=== PATIENT | female | born 1940 | race Caucasian/White ===

== ENCOUNTER → 2016-07-30 | Outpatient (CLI) | payer OTHER, MEDICARE ==
[~2016-07-30] MED LIST: AMOXICILLIN 8751 TAB PO; CELEBREX 200MG200 MG PO; DDAVP; MAGNESIUM100 MG; METAMUCIL1 PDR PO; NEXIUM 20MG20 MG PO; PERCOCET 325 MG1 TA2 PO; PREDNISONE 5MG5 MG PO; PRILOSEC 20MG20 MG PO; PROVIGIL PO; PROVIGIL200 MG PO; REGLAN 5MG T5 MG/TAB PO; RT SPIRIVA18 MCG IH; SEA OMEGA 301 SGL PO; SINGULAIR 110 MG/TAB PO; SYNTHROID0.1 MG/TAB PO; ULTRAM 50MG TAB50 MG PO; ZETIA 10MG TAB10 MG PO; ZETIA10 MG PO; ZOCOR 10MG10 MG PO
== END ==
LOC: MHCPAIN 09:36
DX: G89.29 Other chronic pain (principal); M53.3 Sacrococcygeal disorders, not elsewhere classified; M47.817 Spondylosis without myelopathy or radiculopathy, lumbosacral region; M54.10 Radiculopathy, site unspecified; M12.88 Other specific arthropathies, not elsewhere classified, other specified site
CPT/HCPCS: G0463

== ENCOUNTER → 2016-08-05 | Outpatient (CLI) | payer MEDICARE, OTHER | LOC: MHCPAIN 08:17 | DX: M12.88 Other specific arthropathies, not elsewhere classified, other specified site (principal); M53.3 Sacrococcygeal disorders, not elsewhere classified | CPT/HCPCS: G0260; J1040; Q9967 ==

== ENCOUNTER → 2016-08-19 | Outpatient (CLI) | payer MEDICARE, OTHER | LOC: MHCPAIN 12:48 | DX: M12.88 Other specific arthropathies, not elsewhere classified, other specified site (principal); M53.3 Sacrococcygeal disorders, not elsewhere classified | CPT/HCPCS: G0260 ==

== ENCOUNTER → 2016-11-15 | Outpatient (CLI) | payer MEDICARE, OTHER | LOC: MHCPAIN 07:30 | DX: G89.29 Other chronic pain (principal); M47.817 Spondylosis without myelopathy or radiculopathy, lumbosacral region; M54.16 Radiculopathy, lumbar region; M53.3 Sacrococcygeal disorders, not elsewhere classified | CPT/HCPCS: G0463 ==

== ENCOUNTER → 2016-11-18 | Outpatient (CLI) | payer MEDICARE, OTHER | LOC: MHCPAIN 11:36 | DX: M47.817 Spondylosis without myelopathy or radiculopathy, lumbosacral region (principal) ==

== ENCOUNTER → 2016-11-26 | Outpatient (CLI) | payer MEDICARE, OTHER | LOC: MHCPAIN 08:21 | DX: G89.29 Other chronic pain (principal); M47.817 Spondylosis without myelopathy or radiculopathy, lumbosacral region | CPT/HCPCS: G0463 ==

== ENCOUNTER → 2016-12-02 | Outpatient (CLI) | payer MEDICARE, OTHER | LOC: MHCPAIN 12:07 | DX: M47.817 Spondylosis without myelopathy or radiculopathy, lumbosacral region (principal) | CPT/HCPCS: J1100; J2250; J3010 ==

== ENCOUNTER → 2017-01-31 | Outpatient (CLI) | payer MEDICARE, OTHER | LOC: MHCPAIN 08:10 | DX: M47.817 Spondylosis without myelopathy or radiculopathy, lumbosacral region (principal); M53.3 Sacrococcygeal disorders, not elsewhere classified | CPT/HCPCS: G0463 ==

== ENCOUNTER → 2017-02-02 | Outpatient (CLI) | payer MEDICARE, OTHER | LOC: MC.RAD 10:32 | DX: Z12.31 Encounter for screening mammogram for malignant neoplasm of breast (principal) ==

== ENCOUNTER → 2017-02-03 | Outpatient (CLI) | payer MEDICARE, OTHER | LOC: MHCPAIN 08:08 | DX: M47.817 Spondylosis without myelopathy or radiculopathy, lumbosacral region (principal) ==

== ENCOUNTER → 2017-02-08 | Outpatient (CLI) | payer MEDICARE, OTHER | LOC: MHCPAIN 08:33 | DX: G89.29 Other chronic pain (principal); M47.817 Spondylosis without myelopathy or radiculopathy, lumbosacral region; M53.3 Sacrococcygeal disorders, not elsewhere classified | CPT/HCPCS: G0463 ==

== ENCOUNTER → 2017-02-10 | Outpatient (CLI) | payer MEDICARE, OTHER | LOC: MHCPAIN 07:47 | DX: M47.817 Spondylosis without myelopathy or radiculopathy, lumbosacral region (principal) | CPT/HCPCS: J1100; J2250; J3010; Q9967 ==

== ENCOUNTER → 2017-03-08 | Outpatient (CLI) | payer MEDICARE, OTHER ==
[~2017-03-08] MED LIST changes: +CORTEF5 MG PO; +KLOR-CON 1010 MEQ PO; +LEVAQUIN 750MG750 M1 PO; +MAGNESIUM250 M1 PO; +MASON NATURAL1200 MG PO; +NEURONTIN300 MG/CAP PO; +Patient's Own Medica PO; +ROXICODONE 55 MG/TAB PO; +ZOFRAN ODT4 MG PO
== END ==
LOC: MHCPAIN 08:20
DX: G89.29 Other chronic pain (principal); M47.817 Spondylosis without myelopathy or radiculopathy, lumbosacral region; M53.3 Sacrococcygeal disorders, not elsewhere classified
CPT/HCPCS: G0463

== ENCOUNTER → 2017-05-11 | Outpatient (CLI) | payer MEDICARE, OTHER ==
[~2017-05-11] MED LIST changes: -CORTEF5 MG PO; -KLOR-CON 1010 MEQ PO; -LEVAQUIN 750MG750 M1 PO; -MAGNESIUM250 M1 PO; -MASON NATURAL1200 MG PO; -NEURONTIN300 MG/CAP PO; -Patient's Own Medica PO; -ROXICODONE 55 MG/TAB PO; -ZOFRAN ODT4 MG PO
== END ==
LOC: MHCPAIN 10:07
DX: G89.29 Other chronic pain (principal); M47.27 Other spondylosis with radiculopathy, lumbosacral region; M53.3 Sacrococcygeal disorders, not elsewhere classified
CPT/HCPCS: G0463

== ENCOUNTER 2017-10-04 05:27 | Emergency (ER) | payer MEDICARE, OTHER ==
[~2017-10-04] VITALS: Ht 154.9 cm; Wt 84.7 kg
[2017-10-04 05:40] VITALS: TEMP 98
[2017-10-04 06:19] LABS: BASO % 0.3 % (0.0-2.0); EOS # 0.2 (0.0-0.7); EOS % 1.3 % (0-4.0); GRAN # 8.6 (1.4-6.5); GRAN % 72.1 % (42.2-75.2); HEMATOCRIT 42.5 % (37.0-47.0); LYMPH % 16.7 % (20.0-51.0); MEAN CELL VOLUME 92 fl (80.0-100.0); MEAN CORPUSCULAR HEMOGLOBIN 30 pg (27.0-31.0); MEAN CORPUSCULAR HGB CONC 33 g/dl (33.0-37.0); MONO # 1.1 (0.1-0.6); MONO % 9.3 % (1.7-9.3); PLATELET COUNT 233 K/mm3 (130-400); RED BLOOD COUNT 4.62 M/mm3 (4.10-5.30); REDCELL DISTRIBUTION WIDTH-CV 13.9 % (11.5-14.5)
[2017-10-04 06:29] LABS: ALBUMIN 3.8 gm/dL (3.5-5.0); BILIRUBIN,TOTAL 0.3 mg/dL (0.0-1.0); C-REACTIVE PROTEIN 0.9 mg/dL (0.0-0.9); CREATININE, serum 0.77 mg/dL (0.52-1.25); POTASSIUM 4.1 mmol/L (3.4-5.0)
[2017-10-04 06:37] LABS: COLLECTION METHOD CLEAN CATCH
[2017-10-04 06:48] LABS: MUCOUS Present /lpf; PH 5 (5-8); SQUAMOUS EPITHELIAL 0-2 /hpf; URINE APPEARANCE Clear; URINE BACTERIA None Seen /hpf; URINE BILIRUBIN Negative (NEGATIVE); URINE BLOOD 2+ (NEGATIVE); URINE COLOR Yellow; URINE GLUCOSE Negative (NEGATIVE); URINE KETONE Negative (NEGATIVE); URINE LEUKOCYTE ESTERASE Negative (NEGATIVE); URINE NITRATE Negative (NEGATIVE); URINE PROTEIN(semi-quant) Negative (NEGATIVE); URINE RBC 0-2 /hpf; URINE UROBILINOGEN Negative (NEGATIVE)
[2017-10-04] MEDS ORDERED: ZOFRAN ODT4 MG PO (08:25)
[2017-10-04 08:33] VITALS: BP 128/78; PULSE 71
== END 2017-10-04 08:34 | disposition home or self-care (01) ==
LOC: COL.ER 05:27
PROVIDERS: Emergency Medicine
DX: R10.32 Left lower quadrant pain (principal); R19.7 Diarrhea, unspecified; E78.5 Hyperlipidemia, unspecified; Z87.19 Personal history of other diseases of the digestive system; Z98.51 Tubal ligation status; Z98.890 Other specified postprocedural states; Z87.891 Personal history of nicotine dependence; Z79.52 Long term (current) use of systemic steroids
CPT/HCPCS: Q9967

== ENCOUNTER 2017-10-05 07:50 | Inpatient (IN) | payer MEDICARE, OTHER ==
[~2017-10-05] VITALS: Ht 154.9 cm; Wt 75.0 kg
[~2017-10-05 07:50] MED LIST changes: +ZOFRAN ODT4 MG PO
[2017-10-05 08:59] LABS: BASO % 0.2 % (0.0-2.0); EOS # 0.2 (0.0-0.7); EOS % 1.4 % (0-4.0); GRAN # 9.4 (1.4-6.5); GRAN % 76.8 % (42.2-75.2); HEMATOCRIT 43.1 % (37.0-47.0); HEMOGLOBIN 14.3 g/dl (12.5-16.0); LYMPH # 1.4 (1.2-3.4); LYMPH % 11.6 % (20.0-51.0); MEAN CELL VOLUME 91 fl (80.0-100.0); MEAN CORPUSCULAR HEMOGLOBIN 30 pg (27.0-31.0); MEAN CORPUSCULAR HGB CONC 33 g/dl (33.0-37.0); MEAN PLATELET VOLUME 8.8 fl (7.4-10.4); MONO # 1.2 (0.1-0.6); MONO % 9.6 % (1.7-9.3); PLATELET COUNT 247 K/mm3 (130-400); RED BLOOD COUNT 4.72 M/mm3 (4.10-5.30)
[2017-10-05 09:06] LABS: ALBUMIN 3.8 gm/dL (3.5-5.0); BILIRUBIN,TOTAL 0.6 mg/dL (0.0-1.0); C-REACTIVE PROTEIN 6.6 mg/dL (0.0-0.9); CREATININE, serum 0.94 mg/dL (0.52-1.25); POTASSIUM 3.9 mmol/L (3.4-5.0); TOTAL PROTEIN 7.3 gm/dL (6.4-8.2)
[2017-10-05 09:16] LABS: COLLECTION METHOD CLEAN CATCH
[2017-10-05 09:26] LABS: MUCOUS Present /lpf; PH 5 (5-8); URINE APPEARANCE Hazy; URINE BACTERIA None Seen /hpf; URINE BILIRUBIN Negative (NEGATIVE); URINE BLOOD 3+ (NEGATIVE); URINE COLOR Yellow; URINE GLUCOSE Negative (NEGATIVE); URINE KETONE Negative (NEGATIVE); URINE LEUKOCYTE ESTERASE 1+ (NEGATIVE); URINE NITRATE Negative (NEGATIVE); URINE PROTEIN(semi-quant) Negative (NEGATIVE); URINE UROBILINOGEN Negative (NEGATIVE)
[2017-10-05 11:24] VITALS: BP 128/61; PULSE 82; TEMP 97.6
[2017-10-05 12:57] VITALS: BP 102/48; PULSE 78; TEMP 99
[2017-10-05 12:59] VITALS: BP 102/48; PULSE 78; TEMP 99
[2017-10-05 16:12] VITALS: BP 102/56; PULSE 75; TEMP 98.8
[2017-10-05 19:33] VITALS: BP 114/65; PULSE 73; TEMP 98
[2017-10-05 23:48] VITALS: BP 107/57; PULSE 69; TEMP 98.6
[2017-10-06] VITALS (7 sets, daily range): BP systolic 106–140; BP diastolic 68–83; PULSE 60–73; TEMP 97.7–98.7
[2017-10-06 06:49] LABS: BASO % 0.2 % (0.0-2.0); EOS # 0.2 (0.0-0.7); EOS % 2.2 % (0-4.0); GRAN # 5.4 (1.4-6.5); GRAN % 65.2 % (42.2-75.2); HEMATOCRIT 37.2 % (37.0-47.0); LYMPH # 1.9 (1.2-3.4); LYMPH % 22.5 % (20.0-51.0); MEAN CELL VOLUME 95 fl (80.0-100.0); MEAN CORPUSCULAR HEMOGLOBIN 30 pg (27.0-31.0); MEAN CORPUSCULAR HGB CONC 32 g/dl (33.0-37.0); MEAN PLATELET VOLUME 8.8 fl (7.4-10.4); MONO # 0.8 (0.1-0.6); MONO % 9.5 % (1.7-9.3); PLATELET COUNT 217 K/mm3 (130-400); RED BLOOD COUNT 3.92 M/mm3 (4.10-5.30)
[2017-10-06 06:50] LABS: HEMOGLOBIN 11.9 g/dl (12.5-16.0)
[2017-10-06 07:09] LABS: CALCIUM 7.7 mg/dL (8.4-10.2); CREATININE, serum 0.74 mg/dL (0.52-1.25); POTASSIUM 3.6 mmol/L (3.4-5.0)
[2017-10-07 00:33] VITALS: BP 118/73; PULSE 67; TEMP 97.9
[2017-10-07 03:42] VITALS: BP 131/86; PULSE 69; TEMP 97.9
[2017-10-07 06:38] LABS: BASO % 0.3 % (0.0-2.0); EOS # 0.2 (0.0-0.7); EOS % 2.7 % (0-4.0); GRAN # 5.1 (1.4-6.5); GRAN % 64.7 % (42.2-75.2); LYMPH # 1.7 (1.2-3.4); LYMPH % 22.2 % (20.0-51.0); MEAN CELL VOLUME 94 fl (80.0-100.0); MEAN CORPUSCULAR HGB CONC 32 g/dl (33.0-37.0); MEAN PLATELET VOLUME 8.8 fl (7.4-10.4); MONO # 0.8 (0.1-0.6); MONO % 9.8 % (1.7-9.3); PLATELET COUNT 217 K/mm3 (130-400); RED BLOOD COUNT 3.79 M/mm3 (4.10-5.30); REDCELL DISTRIBUTION WIDTH-CV 13.8 % (11.5-14.5)
[2017-10-07 06:52] LABS: HEMATOCRIT 35.6 % (37.0-47.0); HEMOGLOBIN 11.4 g/dl (12.5-16.0); MEAN CORPUSCULAR HEMOGLOBIN 30 pg (27.0-31.0)
[2017-10-07 07:03] LABS: CALCIUM 8.1 mg/dL (8.4-10.2); CREATININE, serum 0.75 mg/dL (0.52-1.25); POTASSIUM 3.8 mmol/L (3.4-5.0)
[2017-10-07 08:07] VITALS: BP 129/81; PULSE 60; TEMP 98.8
[2017-10-07] MEDS ORDERED: LEVAQUIN 750MG750 M1 PO (09:07)
== END 2017-10-07 10:40 | disposition home or self-care (01) | DRG 372 ==
LOC: COL.ER 07:50 → MEDICAL 09:25
PROVIDERS: Family Medicine; Internal Medicine Gastroenterology; Physician Assistant
PROC: 0DBN8ZX Excision of Sigmoid Colon, Via Natural or Artificial Opening Endoscopic, Diagnostic (ICD-10-PCS; principal; 2017-10-06 12:00)
DX: A04.8 Other specified bacterial intestinal infections (principal); K92.1 Melena; D12.5 Benign neoplasm of sigmoid colon; K64.1 Second degree hemorrhoids; E89.3 Postprocedural hypopituitarism; B96.89 Other specified bacterial agents as the cause of diseases classified elsewhere
CPT/HCPCS: 99222-AI; 99232-AI; 99239; J0744; J2250; J2405; J3010; J7030; J7120; J7512

== ENCOUNTER → 2018-02-28 | Outpatient (CLI) | payer MEDICARE, OTHER ==
[~2018-02-28] MED LIST changes: +LEVAQUIN 750MG750 M1 PO
== END ==
LOC: ZCOL.LAB 16:11
DX: Z01.812 Encounter for preprocedural laboratory examination (principal); Z22.322 Carrier or suspected carrier of Methicillin resistant Staphylococcus aureus

== ENCOUNTER 2018-04-15 00:54 | Inpatient (IN) | payer MEDICARE, OTHER ==
[~2018-04-15] VITALS: Ht 154.9 cm; Wt 92.5 kg
[~2018-04-15 00:54] MED LIST changes: +CORTEF5 MG PO; +MAGNESIUM250 M1 PO; +MASON NATURAL1200 MG PO; +NEURONTIN300 MG/CAP PO; +ROXICODONE 55 MG/TAB PO
[2018-04-15 02:13] LABS: BASO # 0.1 (0.0-0.2); BASO % 0.4 % (0.0-2.0); EOS # 0.1 (0.0-0.7); EOS % 0.6 % (0-4.0); GRAN # 8.6 (1.4-6.5); GRAN % 63.8 % (42.2-75.2); HEMATOCRIT 34.2 % (37.0-47.0); HEMOGLOBIN 10.8 g/dl (12.5-16.0); LYMPH # 3.2 (1.2-3.4); LYMPH % 23.5 % (20.0-51.0); MEAN CELL VOLUME 94 fl (80.0-100.0); MEAN CORPUSCULAR HEMOGLOBIN 30 pg (27.0-31.0); MEAN CORPUSCULAR HGB CONC 32 g/dl (33.0-37.0); MEAN PLATELET VOLUME 8.8 fl (7.4-10.4); MONO # 1.5 (0.1-0.6); PLATELET COUNT 219 K/mm3 (130-400); RED BLOOD COUNT 3.65 M/mm3 (4.10-5.30); REDCELL DISTRIBUTION WIDTH-CV 13.5 % (11.5-14.5)
[2018-04-15 02:19] LABS: COLLECTION METHOD CLEAN CATCH
[2018-04-15 02:25] LABS: ALBUMIN 3.2 gm/dL (3.5-5.0); BILIRUBIN,TOTAL 0.6 mg/dL (0.0-1.0); CALCIUM 8.2 mg/dL (8.4-10.2); CREATININE, serum 0.84 mg/dL (0.52-1.25); POTASSIUM 3.3 mmol/L (3.4-5.0); TOTAL PROTEIN 6.3 gm/dL (6.4-8.2)
[2018-04-15 02:36] LABS: MUCOUS Present /lpf; PH 5 (5-8); SQUAMOUS EPITHELIAL None Seen /hpf; URINE APPEARANCE Hazy; URINE BACTERIA None Seen /hpf; URINE BILIRUBIN Negative (NEGATIVE); URINE BLOOD 3+ (NEGATIVE); URINE COLOR Yellow; URINE GLUCOSE Negative (NEGATIVE); URINE KETONE Negative (NEGATIVE); URINE LEUKOCYTE ESTERASE Negative (NEGATIVE); URINE NITRATE Negative (NEGATIVE); URINE PROTEIN(semi-quant) Negative (NEGATIVE); URINE RBC >50 /hpf
[2018-04-15 05:50] VITALS: BP 109/63; PULSE 88; TEMP 99
[2018-04-15 09:00] VITALS: BP 101/56; PULSE 80; TEMP 98.8
[2018-04-15 10:37] LABS: BASO % 0.3 % (0.0-2.0); EOS # 0.1 (0.0-0.7); EOS % 0.9 % (0-4.0); GRAN # 7.3 (1.4-6.5); GRAN % 67.3 % (42.2-75.2); LYMPH # 2.3 (1.2-3.4); LYMPH % 21.4 % (20.0-51.0); MEAN CELL VOLUME 93 fl (80.0-100.0); MEAN CORPUSCULAR HGB CONC 33 g/dl (33.0-37.0); MEAN PLATELET VOLUME 8.9 fl (7.4-10.4); PLATELET COUNT 187 K/mm3 (130-400); REDCELL DISTRIBUTION WIDTH-CV 13.4 % (11.5-14.5)
[2018-04-15 10:38] LABS: HEMATOCRIT 29.8 % (37.0-47.0); HEMOGLOBIN 9.7 g/dl (12.5-16.0); MEAN CORPUSCULAR HEMOGLOBIN 30 pg (27.0-31.0)
[2018-04-15 10:51] LABS: CALCIUM 7.4 mg/dL (8.4-10.2); CREATININE, serum 0.7 mg/dL (0.52-1.25); MAGNESIUM 1.8 mg/dL (1.6-2.3); POTASSIUM 3.3 mmol/L (3.4-5.0)
[2018-04-15 11:08] LABS: C-REACTIVE PROTEIN 24.4 mg/dL (0.0-0.9)
[2018-04-15 12:45] VITALS: BP 99/58; PULSE 79; TEMP 98.1
[2018-04-15 16:00] VITALS: BP 126/84; PULSE 81; TEMP 98.1
[2018-04-15 20:28] VITALS: BP 127/75; PULSE 77; TEMP 97.6
[2018-04-16 00:33] VITALS: BP 123/70; PULSE 69; TEMP 98.2
[2018-04-16 04:12] VITALS: BP 111/64; PULSE 71; TEMP 97.4
[2018-04-16 08:45] LABS: BASO % 0.2 % (0.0-2.0); EOS % 0.2 % (0-4.0); GRAN # 10.4 (1.4-6.5); GRAN % 81.9 % (42.2-75.2); LYMPH # 1.5 (1.2-3.4); LYMPH % 11.6 % (20.0-51.0); MEAN CELL VOLUME 93 fl (80.0-100.0); MEAN CORPUSCULAR HEMOGLOBIN 30 pg (27.0-31.0); MEAN CORPUSCULAR HGB CONC 33 g/dl (33.0-37.0); MEAN PLATELET VOLUME 8.9 fl (7.4-10.4); MONO # 0.7 (0.1-0.6); MONO % 5.6 % (1.7-9.3); PLATELET COUNT 229 K/mm3 (130-400); RED BLOOD COUNT 3.32 M/mm3 (4.10-5.30); REDCELL DISTRIBUTION WIDTH-CV 13.4 % (11.5-14.5)
[2018-04-16 08:47] VITALS: BP 117/69; PULSE 84; TEMP 98.3
[2018-04-16 08:49] LABS: HEMATOCRIT 30.7 % (37.0-47.0)
[2018-04-16 08:59] LABS: BILIRUBIN,TOTAL 0.3 mg/dL (0.0-1.0); CALCIUM 8.1 mg/dL (8.4-10.2); CREATININE, serum 0.58 mg/dL (0.52-1.25); POTASSIUM 3.5 mmol/L (3.4-5.0); TOTAL PROTEIN 6.1 gm/dL (6.4-8.2)
[2018-04-16 12:03] VITALS: BP 108/64; PULSE 90; TEMP 98.2
[2018-04-16 15:48] VITALS: BP 108/57; PULSE 91; TEMP 98
[2018-04-16 20:00] VITALS: BP 130/73; PULSE 95; TEMP 98.8
[2018-04-17 05:15] VITALS: BP 127/70; PULSE 65; TEMP 98.2
[2018-04-17 07:01] LABS: BASO % 0.3 % (0.0-2.0); EOS # 0.1 (0.0-0.7); EOS % 0.4 % (0-4.0); GRAN # 9.3 (1.4-6.5); LYMPH # 1.4 (1.2-3.4); LYMPH % 11.8 % (20.0-51.0); MEAN CELL VOLUME 94 fl (80.0-100.0); MEAN CORPUSCULAR HGB CONC 32 g/dl (33.0-37.0); MEAN PLATELET VOLUME 9.1 fl (7.4-10.4); MONO # 0.8 (0.1-0.6); MONO % 6.5 % (1.7-9.3); PLATELET COUNT 248 K/mm3 (130-400); RED BLOOD COUNT 2.88 M/mm3 (4.10-5.30); REDCELL DISTRIBUTION WIDTH-CV 13.6 % (11.5-14.5)
[2018-04-17 07:07] LABS: HEMATOCRIT 27.2 % (37.0-47.0); HEMOGLOBIN 8.6 g/dl (12.5-16.0); MEAN CORPUSCULAR HEMOGLOBIN 30 pg (27.0-31.0)
[2018-04-17 07:09] LABS: CALCIUM 7.9 mg/dL (8.4-10.2); CREATININE, serum 0.56 mg/dL (0.52-1.25); POTASSIUM 3.2 mmol/L (3.4-5.0)
[2018-04-17 08:34] VITALS: BP 134/81; PULSE 88; TEMP 98.1
[2018-04-17 12:34] VITALS: BP 127/71; PULSE 73; TEMP 98.2
[2018-04-17] MEDS ORDERED: Patient's Own Medica PO (13:09)
[2018-04-17] MEDS ORDERED: CORTEF5 MG PO (13:09)
[2018-04-17] MEDS ORDERED: KLOR-CON 1010 MEQ PO (14:54)
== END 2018-04-17 16:00 | disposition home or self-care (01) | DRG 602 ==
LOC: COL.ER 00:54 → SURG 03:09
PROVIDERS: Emergency Medicine; Hospitalist; Nurse Practitioner Family
DX: L03.113 Cellulitis of right upper limb (principal); J18.9 Pneumonia, unspecified organism; E87.1 Hypo-osmolality and hyponatremia; F44.89 Other dissociative and conversion disorders; R53.1 Weakness; E87.8 Other disorders of electrolyte and fluid balance, not elsewhere classified; E87.6 Hypokalemia; K21.9 Gastro-esophageal reflux disease without esophagitis; E89.3 Postprocedural hypopituitarism; J44.9 Chronic obstructive pulmonary disease, unspecified; Z23 Encounter for immunization
CPT/HCPCS: 99223-AI; 99233-AI; 99239; J1644; J1720; J1956; J3010; J3370; J7030; J7050

== ENCOUNTER 2018-04-24 09:06 | Emergency (ER) | payer MEDICARE, OTHER ==
[~2018-04-24] VITALS: Ht 154.9 cm; Wt 85.5 kg
[~2018-04-24 09:06] MED LIST changes: +KLOR-CON 1010 MEQ PO; +Patient's Own Medica PO
[2018-04-24 09:10] VITALS: TEMP 100
[2018-04-24 11:32] LABS: ALBUMIN 3.4 gm/dL (3.5-5.0); BILIRUBIN,TOTAL 0.4 mg/dL (0.0-1.0); C-REACTIVE PROTEIN 8.9 mg/dL (0.0-0.9); CALCIUM 8.5 mg/dL (8.4-10.2); CREATININE, serum 0.73 mg/dL (0.52-1.25); POTASSIUM 3.7 mmol/L (3.4-5.0); TOTAL PROTEIN 6.6 gm/dL (6.4-8.2)
[2018-04-24 11:55] LABS: MEAN CELL VOLUME 93 fl (80.0-100.0); MEAN CORPUSCULAR HGB CONC 32 g/dl (33.0-37.0); MEAN PLATELET VOLUME 8.3 fl (7.4-10.4); RED BLOOD COUNT 3.76 M/mm3 (4.10-5.30); REDCELL DISTRIBUTION WIDTH-CV 13.8 % (11.5-14.5)
[2018-04-24 11:57] LABS: HEMATOCRIT 35.1 % (37.0-47.0); HEMOGLOBIN 11.3 g/dl (12.5-16.0); MEAN CORPUSCULAR HEMOGLOBIN 30 pg (27.0-31.0); PLATELET COUNT 290 K/mm3 (130-400)
[2018-04-24 12:36] LABS: ERYTHROCYTE SEDIMENTATION RATE 67 mm/hr (0-30)
[2018-04-24 13:14] VITALS: BP 128/70; PULSE 89
== END 2018-04-24 13:15 | disposition home or self-care (01) ==
LOC: COL.ER 09:06
PROVIDERS: Emergency Medicine
DX: M54.2 Cervicalgia (principal); J44.9 Chronic obstructive pulmonary disease, unspecified
CPT/HCPCS: J1720; J2405; J3010; J7030

== ENCOUNTER 2018-04-26 01:54 | Emergency (ER) | payer MEDICARE, OTHER ==
[~2018-04-26] VITALS: Ht 162.6 cm; Wt 100.0 kg
[2018-04-26 02:06] LABS: COLLECTION METHOD CATHETER
[2018-04-26 02:13] LABS: MUCOUS Present /lpf; PH 5 (5-8); SQUAMOUS EPITHELIAL None Seen /hpf; URINE APPEARANCE Clear; URINE BACTERIA None Seen /hpf; URINE BILIRUBIN Negative (NEGATIVE); URINE BLOOD 2+ (NEGATIVE); URINE COLOR Yellow; URINE GLUCOSE Negative (NEGATIVE); URINE KETONE Negative (NEGATIVE); URINE LEUKOCYTE ESTERASE Negative (NEGATIVE); URINE NITRATE Negative (NEGATIVE); URINE PROTEIN(semi-quant) Negative (NEGATIVE); URINE UROBILINOGEN Negative (NEGATIVE)
[2018-04-26 02:39] LABS: BASO % 0.4 % (0.0-2.0); EOS # 0.2 (0.0-0.7); EOS % 1.3 % (0-4.0); GRAN # 6.7 (1.4-6.5); GRAN % 59.7 % (42.2-75.2); HEMOGLOBIN 11.8 g/dl (12.5-16.0); LYMPH # 3.1 (1.2-3.4); LYMPH % 27.5 % (20.0-51.0); MEAN CELL VOLUME 92 fl (80.0-100.0); MEAN CORPUSCULAR HEMOGLOBIN 30 pg (27.0-31.0); MEAN CORPUSCULAR HGB CONC 32 g/dl (33.0-37.0); MEAN PLATELET VOLUME 8.3 fl (7.4-10.4); MONO # 1.2 (0.1-0.6); MONO % 10.7 % (1.7-9.3); PLATELET COUNT 332 K/mm3 (130-400); RED BLOOD COUNT 3.97 M/mm3 (4.10-5.30); REDCELL DISTRIBUTION WIDTH-CV 13.6 % (11.5-14.5)
[2018-04-26 02:41] LABS: HEMATOCRIT 36.4 % (37.0-47.0)
[2018-04-26 02:53] LABS: ALBUMIN 3.4 gm/dL (3.5-5.0); BILIRUBIN,TOTAL 0.6 mg/dL (0.0-1.0); CALCIUM 8.5 mg/dL (8.4-10.2); CREATININE, serum 0.95 mg/dL (0.52-1.25); POTASSIUM 4.2 mmol/L (3.4-5.0); TOTAL PROTEIN 6.7 gm/dL (6.4-8.2)
[2018-04-26 03:04] LABS: C-REACTIVE PROTEIN 22.2 mg/dL (0.0-0.9)
[2018-04-26 03:36] VITALS: TEMP 100.3
[2018-04-26 03:49] VITALS: BP 106/80; PULSE 90
== END 2018-04-26 03:54 | disposition short-term general hospital (02) ==
LOC: COL.ER 01:54
PROVIDERS: Emergency Medicine
DX: R41.82 Altered mental status, unspecified (principal); J44.9 Chronic obstructive pulmonary disease, unspecified; E78.5 Hyperlipidemia, unspecified; E03.9 Hypothyroidism, unspecified; K21.9 Gastro-esophageal reflux disease without esophagitis; Z98.51 Tubal ligation status; Z96.651 Presence of right artificial knee joint
CPT/HCPCS: J7030

== ENCOUNTER → 2019-08-02 | Outpatient (CLI) | payer MEDICARE, OTHER | LOC: MC.RAD 09:26 | DX: Z12.31 Encounter for screening mammogram for malignant neoplasm of breast (principal) ==

== ENCOUNTER 2020-03-18 04:45 | Inpatient (IN) | payer MEDICARE, OTHER ==
[~2020-03-18] VITALS: Ht 154.9 cm; Wt 91.3 kg
[~2020-03-18 04:45] MED LIST changes: +CORTEF 10MG TAB10 MG PO; +CORTEF 20MG TAB20 MG PO; +FLORINEF ACETA0.1 MG PO; +TOPAMAX 25MG25 M1 PO
[2020-03-18 05:31] LABS: BASO # 0.1 (0.0-0.2); BASO % 0.8 % (0.0-2.0); EOS # 0.2 (0.0-0.7); EOS % 3.1 % (0-4.0); GRAN # 3.4 (1.4-6.5); GRAN % 51.7 % (42.2-75.2); HEMOGLOBIN 11.1 g/dl (12.5-16.0); LYMPH % 31.2 % (20.0-51.0); MEAN CELL VOLUME 83 fl (80.0-100.0); MEAN CORPUSCULAR HEMOGLOBIN 25 pg (27.0-31.0); MEAN CORPUSCULAR HGB CONC 30 g/dl (33.0-37.0); MEAN PLATELET VOLUME 8.8 fl (7.4-10.4); MONO # 0.8 (0.1-0.6); MONO % 12.9 % (1.7-9.3); PLATELET COUNT 419 K/mm3 (130-400); RED BLOOD COUNT 4.43 M/mm3 (4.10-5.30); REDCELL DISTRIBUTION WIDTH-CV 16.4 % (11.5-14.5)
[2020-03-18 05:36] LABS: HEMATOCRIT 36.6 % (37.0-47.0)
[2020-03-18 05:39] LABS: ALBUMIN 3.9 gm/dL (3.5-5.0); BILIRUBIN,TOTAL 0.5 mg/dL (0.0-1.0); CREATININE, serum 0.73 (0.52-1.25); POTASSIUM 3.5 mmol/L (3.4-5.0)
[2020-03-18 05:40] LABS: CALCIUM 8.7 mg/dL (8.4-10.2)
[2020-03-18 05:42] LABS: COLLECTION METHOD CATHETER
[2020-03-18 06:00] LABS: MUCOUS Present /lpf; PH 5 (5-8); SQUAMOUS EPITHELIAL 0-2 /hpf; URINE APPEARANCE Hazy; URINE BACTERIA None Seen /hpf; URINE BILIRUBIN Negative (NEGATIVE); URINE BLOOD 1+ (NEGATIVE); URINE COLOR Yellow; URINE GLUCOSE Negative (NEGATIVE); URINE KETONE Negative (NEGATIVE); URINE LEUKOCYTE ESTERASE Negative (NEGATIVE); URINE NITRATE Negative (NEGATIVE); URINE PROTEIN(semi-quant) 1+ (NEGATIVE); URINE UROBILINOGEN Negative (NEGATIVE)
[2020-03-18] MEDS ORDERED: REQUIP 0.5MG0.5 MG PO ×2 (07:05→15:57)
--- NOTE | 2020-03-18 14:06 | NUR ---
PAtient arrived to the floor at this time. She is drowsy but responsive while answering questions. States she doesnt have much appetite, and that she is tired. Denies pain or discomfort at this time. Expiratory wheezes present and audible both with and without ascultation. was at the bedside but had to leave in a hurry, stated he will end med rec to patients phone for our review. IV site is CD&I at this time. Will hang fluids and administer meds as orders. No other needs were expressed at this time.
[2020-03-18] MEDS ORDERED: TYLENOL 325MG325 MG PO (14:30)
[2020-03-18] MEDS ORDERED: LIPITOR 10MG10 MG PO (14:31)
[2020-03-18] MEDS ORDERED: DDAVP (14:32)
[2020-03-18 14:34] VITALS: BP 129/77; PULSE 87; TEMP 98.2
[2020-03-18] MEDS ORDERED: ATROVENT I0.2 MG/1 M IH (14:35)
[2020-03-18] MEDS ORDERED: MELATIN 3 MG-11 TAB PO (14:36)
[2020-03-18] MEDS ORDERED: REMERON 15M15 MG/TA1 PO (14:38)
[2020-03-18] MEDS ORDERED: SINGULAIR 110 MG/TAB PO (14:39)
[2020-03-18] MEDS ORDERED: PROTONIX 40MG T40 MG PO (14:40)
[2020-03-18] MEDS ORDERED: KLOR-CON 1010 MEQ PO (14:41)
[2020-03-18] MEDS ORDERED: TOPAMAX 25MG25 M1 PO (14:42)
[2020-03-18] MEDS ORDERED: INCRUSE EL62.5 MCG/A IH (14:42)
[2020-03-18] MEDS ORDERED: MIRALAX PA17 GM/Dose PO (14:43)
[2020-03-18] MEDS ORDERED: PRILOSEC 20MG20 MG PO (15:51)
[2020-03-18] MEDS ORDERED: CELEBREX 200MG200 MG PO (15:52)
[2020-03-18] MEDS ORDERED: PROVIGIL200 MG PO (15:52)
[2020-03-18] MEDS ORDERED: ZOCOR 10MG10 MG PO (15:55)
[2020-03-18] MEDS ORDERED: REGLAN 5MG T5 MG/TAB PO (15:56)
[2020-03-18] MEDS ORDERED: ULTRAM ER100 MG PO (15:58)
[2020-03-18] MEDS ORDERED: CORTEF 10MG TAB10 MG PO (16:37)
--- NOTE | 2020-03-18 16:56 | NUR ---
Patient has been sleeping since arriving to the floor. She is confused on most occations of communication but answered almost all of the orientation questions correctly. She just didnt know where she was. She denies pain or discomfort at this time, and remains drowsy. Pharmacy is working on Poll Everywhere as patient uses 2 pharmacies so a printed list from [facility] was used and also gave a verbal list of what she takes at home. There are inconsistencies here. IVF are infusing, IV site CD&I. No other needs or issues at this time. Call light is in reach.
[2020-03-18 17:32] VITALS: BP 112/56; PULSE 91; TEMP 98.2
--- NOTE | 2020-03-18 19:30 | NUR ---
Assessment complete. This RN entered room as pt was attempting to get out of bed. Pt appeared to be confused and disoriented, speech incomprehensible at times. Pt repeatedly stated "I need to go" with occasional moans. This RN asked if pt was in pain to which she replied no. Pt eventually said she needed to go to the bathroom. Commode placed at bedside, gait belt placed on pt, and pt was assisted to commode by this RN and Jennifer SERNA. Pt urinated and had BM on commode, BM was watery and brown. Pt cleaned up and assisted into a yellow gown and yellow nonskid socks and helped back to bed. 2+ pitting edema noted to BLE. Contractures noted to toes bilaterally. Pt on O2 by nasal cannula at 2 L/min. Breathing labored with exertion. Pt reports occasional nausea. IV to left AC intact, NS running at 100 ml/hr. No other needs noted at this time. Call light in reach, bed alarm on, room door open.
[2020-03-18 20:00] VITALS: BP 90/50; PULSE 98; TEMP 98
--- NOTE | 2020-03-18 20:48 | NUR ---
Bi RN called this RN stating that pt was attempting to pull out IV and being combative. This RN went to room to find pt standing at bedside, Bi in room attempting to calm pt down, pt swinging call light at [facility]. This RN removed call light from pt's hand. Blessing RN came to assist in calming pt while Bi called Edwina BULLOCK. Pt pulled off nasal cannula and continued to pull at IV tubing. This RN and Blessing attempted to wrap pt's IV site with MEREDITH wrap but pt began swinging her arms and digging her fingernails into Blessing's arm. Pt was screaming "Get out. Leave me alone. Don't touch me." repeatedly. At this time, pt was breathing heavily and appeared to short of breath, refused nasal cannula. Pt lost balance multiple times and was caught by this RN. Continued to refuse to get back in bed. Edwina BULLOCK was contacted and ordered 0.5 mg IV Ativan. This RN stayed with pt while Blessing got the Ativan. Ativan was administered. After a few minutes, pt calmed down and sat back on side of bed. Agreed to place nasal cannula back on and lie down in bed. Bed alarm on, room door open. Will continue to monitor.
--- NOTE | 2020-03-18 21:03 | NUR ---
Received report from KAREEM Singer. Pt resting in bed at this time. Denies needs.
[2020-03-19] VITALS (7 sets, daily range): BP systolic 96–115; BP diastolic 45–67; PULSE 73–111; TEMP 98.2–102.9
--- NOTE | 2020-03-19 07:00 | NUR ---
Report with KAREEM Guaman. Pt resting in bed with eyes closed, talking to people who are not there and gesturing with hands occasionally. IVF's infusing to left AC without s/s of complications. Call light in reach. Bed alarm on.
--- NOTE | 2020-03-19 07:25 | NUR ---
FOUND OFF O2. RA SPO2 85%. PLACED BACK ON 2 LP NC 90%
[2020-03-19 07:31] LABS: ALBUMIN 3.1 gm/dL (3.5-5.0); BILIRUBIN,TOTAL 0.4 mg/dL (0.0-1.0); CALCIUM 8.4 mg/dL (8.4-10.2); CREATININE, serum 0.76 (0.52-1.25); MAGNESIUM 2.4 mg/dL (1.6-2.3); POTASSIUM 3.1 mmol/L (3.4-5.0); TOTAL PROTEIN 5.8 gm/dL (6.4-8.2)
--- NOTE | 2020-03-19 07:31 | NUR ---
Pt has had several episodes of getting out of bed and getting combative with staff while trying to assist her. Urinated on floor twice. Has attempted to pull out IV multiple times. IV Ativan and PO seroquel each administered once per orders. CT of head completed and psych consulted. Pt also had two episodes of heaving with little to no emesis.
[2020-03-19 07:38] LABS: PRE ALBUMIN 11.7 mg/dL (17.6-36.0)
[2020-03-19 08:00] LABS: TSH w REFLEX 0.015 uIU/mL (0.465-4.680)
[2020-03-19 10:30] LABS: ARTERIAL BLOOD GAS HCO3 22.9 meq/L (22-26); ARTERIAL BLOOD GAS PCO2 35.6 mmHg (35-45); ARTERIAL BLOOD GAS PO2 84.5 mmHg (80-100); ARTERIAL BLOOD GAS pH 7.43 (7.35-7.45)
--- NOTE | 2020-03-19 11:32 | NUR ---
Pt up to [facility] [place] assist x 1, continually needing redirected, sits back down on side of bed after voiding but does not follow any further directions and keeping eyes closed, mumbling incoherently. Pt's spouse arrives during this time but pt still does not open eyes. Skin very warm to touch. Axillary temp assessed to be 102.9 degrees F. Provider notified.
--- NOTE | 2020-03-19 11:43 | NUR ---
Vancomycin Initial Dosing Pharmacy Note Ordering provider: Keenan Wiggins MD Indication/duration: EMPIRIC LABS: TMax 102.9, WBC 6.5, SCr 0.76, CrCl 53 Recommendation: vancomycin 17 mg/kg Loading dose: 1.5 grams Maintenance dose: 1.5 grams every 12 hours Trough goal: 15-20 ug/mL. trough 03/21 @ 1130
--- NOTE | 2020-03-19 12:37 | NUR ---
Assessed to start second IV site for added IV medications, no good site found. Lab attempting to draw blood for cultures without success. Provider notified and requesting central line placement. Orders placed and IV therapy notified.
--- NOTE | 2020-03-19 12:50 | NUR ---
Pt with eyes opening now and saying "ouch, hurts everywhere." Does stay alert long enough to safely swallow a Tylenol tablet and a little bit of water. Pt's at bedside. IV therapy coming soon for PICC line placement.
[2020-03-19 15:17] LABS: BASO % 0.6 % (0.0-2.0); EOS # 0.2 (0.0-0.7); EOS % 2.5 % (0-4.0); GRAN # 3.7 (1.4-6.5); GRAN % 54.2 % (42.2-75.2); LYMPH % 29.8 % (20.0-51.0); MEAN CELL VOLUME 85 fl (80.0-100.0); MEAN CORPUSCULAR HGB CONC 30 g/dl (33.0-37.0); MEAN PLATELET VOLUME 9.4 fl (7.4-10.4); MONO # 0.9 (0.1-0.6); MONO % 12.8 % (1.7-9.3); PLATELET COUNT 320 K/mm3 (130-400); RED BLOOD COUNT 3.69 M/mm3 (4.10-5.30); REDCELL DISTRIBUTION WIDTH-CV 17.1 % (11.5-14.5)
[2020-03-19 15:19] LABS: HEMATOCRIT 31.2 % (37.0-47.0); HEMOGLOBIN 9.3 g/dl (12.5-16.0); MEAN CORPUSCULAR HEMOGLOBIN 25 pg (27.0-31.0)
--- NOTE | 2020-03-19 15:23 | NUR ---
Pt down to PACU via bed for procedure.
[2020-03-19 15:27] LABS: ALBUMIN 3.1 gm/dL (3.5-5.0); BILIRUBIN,TOTAL 0.4 mg/dL (0.0-1.0); CALCIUM 8.7 mg/dL (8.4-10.2); CREATININE, serum 0.85 (0.52-1.25); POTASSIUM 3.6 mmol/L (3.4-5.0); TOTAL PROTEIN 5.8 gm/dL (6.4-8.2)
--- NOTE | 2020-03-19 15:53 | NUR ---
Pt back to room from PACU via bed, alert and fidgeting, not coherent or responding appropriately. Temp down to 100.6 degrees F axillary. O2 at 3 L/min via NC with sats 95%. Call light in reach. Bed alarm on.
--- NOTE | 2020-03-19 16:00 | NUR ---
The patient was down in a test. The patient has been confused and had an episode of agitation overnight. SW contacted the patient's , Octavio (ph#[phone]), to discuss discharge plan. The patient lives in [place] with her . Octavio reports that the patient has been independent with ADLs and has a cane and walker. The patient recently discharged from our hospital, 01/28, and transferred to [facility]. Octavio reports that things has been okay at home since the patient returned home. He states that the patient just gets worn out very quickly. The patient's PCP is Dr. Charlee Lagos and she receives her medications at [facility]. Octavio reports no difficulties obtaining her meds. The patient does not have advanced directives in EMR, but Octavio reports that he just found the patient's DPOA-HC paperwork and can bring it up to the hospital. Octavio states that he is the patient's DPOA-HC. MELISSA then discussed PT's recommendation of not being safe to return home at this time, due to her current mental status. MELISSA discussed post-acute rehab. Octavio reports that he would be interested in post-acute rehab for the patient and preferred [facility], [facility], and [facility]. Octavio reports that the patient has been to [facility] in the past and did not like it there. He would not want a referral sent to [facility]. MELISSA contacted and faxed a referral to all four facilities. Azucena, at [facility], reports that they are full at this time. SW awaiting other screens. A psych consult was ordered. SW to continue to follow.
--- NOTE | 2020-03-19 16:28 | NUR ---
Business Liaison Manager spoke with Radha at [facility] and they are going to decline referral. Radha advised [facility] and [facility] with [facility]. SW will continue to follow.
[2020-03-19 16:34] LABS: GLUCOSE,CSF 62 mg/dL (40-70); TOTAL PROTEIN,CSF 54 mg/dL (15-45)
[2020-03-19 16:42] LABS: CSF APPEARANCE CLEAR; CSF COLOR COLORLESS; CSF RBC 446 /mm3 (0-0)
[2020-03-19 17:11] LABS: CSF MONONUCLEAR 81 % (70-100); CSF POLYMORPHONUCLEAR 19 % (0-6)
--- NOTE | 2020-03-19 18:00 | NUR ---
technical account executive unable to get peripheral blood cultures. Pt very fidgety during attempt, stating "I have to pee." After labor relations manager leaves room, pt trying to roll out of bed. This nurse attempting to help pt sit up to then stand. Pt not cooperating with commands, once sitting up then lays back down and closes eyes, no longer agitated. Brief found to have incontinent urine. Pt cleaned and changed. External catheter discussed but pt not leaving O2 or other lines alone, will not allow the external catheter. No further needs reported. Bed alarm on.
--- NOTE | 2020-03-19 20:00 | NUR ---
Initial shift asessment done- patient is awake, confused, mumbling- cannot understand, restless, does not follow commands, trying to get out of bed-- Up to BSC with 2 assists- had already been incontinent in bed-- bed change done,new gown on-- back to bed- warm blanket given,, pt pulling off o2- sats 85-86 off o2-- put back on 3L/nc, sat 96%. IV fluids of 1/2NS at 75cc/hr per left arm PICC.
--- NOTE | 2020-03-19 22:30 | NUR ---
Did take her meds tonight crushed in pudding tonight with much encouragement- was given a tylenol suppository for restlessness-?pain. Continues with mumbling- unable to understand- reaching out for things in the air-?hallucinating.
--- NOTE | 2020-03-20 02:16 | NUR ---
Very agitated- sqirmimg all over the bed- trying to get out on the bottom of the bed- continually mumbling cannot understand- calm music playing , nurse has been at bedside for past 1-2 hours continuous-- will give prn Seraquel at this time
[2020-03-20 02:40] VITALS: BP 114/89; PULSE 130; TEMP 98.3
--- NOTE | 2020-03-20 02:46 | NUR ---
Continues with agitation- pulling at tubing and taking off o2-- mitts applied- incontinent of large amount of urine-bed changed- swinging arms in the air--did give the prn seraquel 30minutes ago--called Edwina TORO - ok to give Haldol as ordered, aslo asked about if she wanted more IV fluids-- was only ordered for this one bag today-- states no more IV fluids at this time- will see if heart rate comes down with Haldol- will let Edwina know
[2020-03-20 04:23] VITALS: PULSE 107
--- NOTE | 2020-03-20 04:50 | NUR ---
Did get IV Haldol at about 0300-- did not help much with agitation, pt has not slept but a few 5-10 minute stretches- otherwise mumbling/picking at things all night-- called Edwina TORO to let know that pulse did come down to 107, sats 93% on 3L/nc, still agitated, mitts put on but patient able to bite them off within a few minutes. Order for a one time dose of Seraquel 12.5mg p.o from Edwina TORO
--- NOTE | 2020-03-20 07:49 | NUR ---
PATIENT UNABLE TO TAKE INCRUSE IN A THERAPUTIC MANNER THIS AM. 96% ON 3LPM. LUNG SOUNDS CRACKLES IN BASES.
[2020-03-20 08:25] LABS: BASO % 0.5 % (0.0-2.0); EOS # 0.2 (0.0-0.7); EOS % 2.4 % (0-4.0); GRAN # 3.6 (1.4-6.5); GRAN % 55.2 % (42.2-75.2); LYMPH # 1.9 (1.2-3.4); LYMPH % 28.2 % (20.0-51.0); MEAN CELL VOLUME 86 fl (80.0-100.0); MEAN CORPUSCULAR HGB CONC 30 g/dl (33.0-37.0); MEAN PLATELET VOLUME 9.1 fl (7.4-10.4); MONO # 0.9 (0.1-0.6); MONO % 13.2 % (1.7-9.3); PLATELET COUNT 306 K/mm3 (130-400); RED BLOOD COUNT 3.85 M/mm3 (4.10-5.30); REDCELL DISTRIBUTION WIDTH-CV 17.3 % (11.5-14.5)
[2020-03-20 08:32] VITALS: BP 122/60; PULSE 104; TEMP 97.5
[2020-03-20 08:32] LABS: HEMATOCRIT 33.2 % (37.0-47.0); HEMOGLOBIN 9.8 g/dl (12.5-16.0); MEAN CORPUSCULAR HEMOGLOBIN 25 pg (27.0-31.0)
[2020-03-20 08:53] LABS: CALCIUM 9.6 mg/dL (8.4-10.2); CREATININE, serum 0.86 (0.52-1.25)
--- NOTE | 2020-03-20 11:08 | NUR ---
Pt had two episodes of incontinence this morning, one at shift change, complete bed change made, new gown, pt cleaned. Pt is alert, disoriented, unable to answer questions, shaking, keeps eyes closed majority of time, unable to follow commands completely, difficult to assess. Pt has FLORENCE PICC in place. Pt had critical Na of 170, hospitalist and PA notified, D5W started at 150ml/hr. Matthews cath ordered and placed, 16F, 625ml, pale, clear, yellow urine output received. Bed alarm on.
[2020-03-20 11:17] LABS: CALCIUM 9.9 mg/dL (8.4-10.2); CREATININE, serum 0.97 (0.52-1.25); POTASSIUM 4.1 mmol/L (3.4-5.0)
[2020-03-20 11:41] VITALS: BP 148/113; PULSE 113; TEMP 99.5
[2020-03-20 12:48] LABS: CALCIUM 9.8 mg/dL (8.4-10.2); CREATININE, serum 0.91 (0.52-1.25)
--- NOTE | 2020-03-20 12:55 | NUR ---
Initial visit; Patient appeared agitated and unable to let Quality Technician Fiberglass know what her needs were. Quality Technician [employer] brought her lunch tray closer to her bed but noted that she needed further help. Nurse is aware of situation.
[2020-03-20 14:37] LABS: CALCIUM 9.7 mg/dL (8.4-10.2); CREATININE, serum 0.99 (0.52-1.25); POTASSIUM 3.8 mmol/L (3.4-5.0)
[2020-03-20 16:19] VITALS: BP 107/67; PULSE 103; TEMP 99.7
[2020-03-20 16:28] LABS: CALCIUM 9.5 mg/dL (8.4-10.2); CREATININE, serum 1.02 (0.52-1.25); POTASSIUM 3.6 mmol/L (3.4-5.0)
--- NOTE | 2020-03-20 16:50 | NUR ---
Global Program Director faxed updates to [facility] and [facility]. Yari at [facility] continues to follow referral and Jerson at [facility] declined referral. MELISSA contacted Shay at [facility] who advised patient used 22 skilled days in February/March. MELISSA contacted Octavio, patient's about sending additional referrals. Octavio is agreeable to have additional referrals sent but reports his overall preference is for patient to return home.
[2020-03-20 18:27] LABS: CALCIUM 9.5 mg/dL (8.4-10.2); CREATININE, serum 1.04 (0.52-1.25); POTASSIUM 3.6 mmol/L (3.4-5.0)
--- NOTE | 2020-03-20 19:17 | NUR ---
Pt has had eventful day, >1500 output from keating, pale yellow urine. Pt has remained sleepy/drowsy, shakiness has decreased some. Na checked every two hours, decreasing. D5W running at 200ml/hr at this time. Dr. zendejas gave verbal order for NG tube insertion to administer 400ml free water Q4, check residuals, mod dose sliding scale, ACHS accu check. BS have been increasing. Hospitalist aware, POC discussed. CXR ordered to check placement of NG tube, just completed at this time, 1919. Pt tolerated NG tube placement ok. Minimal response and still unable to follow commands, appropriate strength, pt attempted to take NG tube out as staff was inserting it, mitts were placed. No further needs at this time. Report given to KAREEM Corbett.
[2020-03-20 19:45] VITALS: BP 121/99; PULSE 109; TEMP 98.7
[2020-03-20 20:30] LABS: CREATININE, serum 0.86 (0.52-1.25)
[2020-03-20 21:24] LABS: CALCIUM 9.2 mg/dL (8.4-10.2); CREATININE, serum 1.07 (0.52-1.25); POTASSIUM 3.3 mmol/L (3.4-5.0)
[2020-03-21] VITALS (694 sets, daily range): BP systolic 100–134; BP diastolic 60–105; PULSE 80–117; TEMP 97–98; O2SAT 59–100
--- NOTE | 2020-03-21 | NUR ---
NG tube placed on dayshift. Portable xray obtained to check NG tube placement at shift change. KOBE Bland was called by radiology stating that the NG tube was not in the correct location for use and gave orders to pull the NG tube. Notified KOBE Bland of sodium level of 147 who then gave orders to call Dr. Soler of sodium level. Dr. Soler on phone when BG resulted of 828 which was off of the same labs drawn for the sodium of 147. Dr. Soler gave orders to draw STAT BMP and disregard BMP that had resulted at 2013. NG tube pulled and stat BMP was drawn. BMP at 2055 showed NA at 170 and BG at 329. DEJUAN Bland notified along with Dr. Soler of new lab results. KOBE Bland and change house attendant attempted to resinsert NG per orders from Dr. Soler without success. Dr. Soler notified of unsuccessful NG attempts with orders to leave NG tube out and disregard free water flush orders and monitor NA levels with current IV fluids. IV insulin was given per orders from DEJUAN Bland with additional orders to check BG 1 hr after giving IV insulin. 1 hr after IV insulin was given, BG was 355. Orders from KOBE Bland to transfer to [facility] in order to start insulin gtt. Report called to Luiza in ICU. Pt transfered to [facility] bed 4 at this time.
[2020-03-21 00:27] LABS: ANION GAP 9 mmol/L (7-16); BLOOD UREA NITROGEN 5 mg/dL (7-17); CARBON DIOXIDE 21 mmol/L (22-30); CHLORIDE 138 mmol/L (98-107); CREATININE, serum 1.05 (0.52-1.25); GLUCOSE 363 mg/dL (74-106); POTASSIUM 3.2 mmol/L (3.4-5.0)
[2020-03-21 00:29] LABS: SODIUM 169 mmol/L (137-145)
[2020-03-21 00:42] LABS: MAGNESIUM 2.3 mg/dL (1.6-2.3)
[2020-03-21 00:44] LABS: PHOSPHOROUS < 0.5 mg/dL (2.5-4.5)
[2020-03-21 02:14] LABS: ARTERIAL BLD GAS O2 SATURATION 93.2 % (92-100); ARTERIAL BLD GAS TCO2 CT 18.4; ARTERIAL BLOOD GAS BASE EXCESS -6.3 (-2-2); ARTERIAL BLOOD GAS HCO3 17.5 meq/L (22-26); ARTERIAL BLOOD GAS PCO2 28.8 mmHg (35-45); ARTERIAL BLOOD GAS PO2 64.8 mmHg (80-100)
[2020-03-21 02:59] LABS: CALCIUM 9.3 mg/dL (8.4-10.2); CREATININE, serum 1.01 (0.52-1.25); POTASSIUM 3.3 mmol/L (3.4-5.0)
[2020-03-21 04:39] LABS: BASO % 0.3 % (0.0-2.0); GRAN # 6.6 (1.4-6.5); GRAN % 83.7 % (42.2-75.2); LYMPH # 0.9 (1.2-3.4); MEAN CELL VOLUME 87 fl (80.0-100.0); MEAN CORPUSCULAR HGB CONC 29 g/dl (33.0-37.0); MEAN PLATELET VOLUME 9.2 fl (7.4-10.4); MONO # 0.3 (0.1-0.6); MONO % 3.4 % (1.7-9.3); RED BLOOD COUNT 3.37 M/mm3 (4.10-5.30); REDCELL DISTRIBUTION WIDTH-CV 17.6 % (11.5-14.5)
[2020-03-21 04:48] LABS: ALBUMIN 2.9 gm/dL (3.5-5.0); BILIRUBIN,TOTAL 0.3 mg/dL (0.0-1.0); CREATININE, serum 0.99 (0.52-1.25); POTASSIUM 3.2 mmol/L (3.4-5.0); TOTAL PROTEIN 5.6 gm/dL (6.4-8.2)
[2020-03-21 04:58] LABS: HEMATOCRIT 29.3 % (37.0-47.0); HEMOGLOBIN 8.4 g/dl (12.5-16.0); MEAN CORPUSCULAR HEMOGLOBIN 25 pg (27.0-31.0); PLATELET COUNT 186 K/mm3 (130-400)
--- NOTE | 2020-03-21 08:25 | NUR ---
Left upper arm PICC intact with sterile dressing change done with insertion site cleansed with chloraprep x 1, chlorhexidine impregnated disk applied, skin prep, stat lock, and tegaderm applied. no signs or symptoms of IV complications noted. re-wrapped with brody to protect catheter.
[2020-03-21 11:23] LABS: CALCIUM 8.5 mg/dL (8.4-10.2); CREATININE, serum 1.06 (0.52-1.25); POTASSIUM 3.5 mmol/L (3.4-5.0)
--- NOTE | 2020-03-21 13:50 | NUR ---
PT INTUBATED BY SAMARIA ARANA WITH A SIZE 8.0 ETT SECURED 22 AT TEETH. +BLBS PRESENT. ETCO2 POSITIVE COLOR CHANGE YELLOW. PT PLACED ON VENT PER DR VOGEL'S ORDER. NO COMPLICATIONS.
--- NOTE | 2020-03-21 14:21 | NUR ---
The patient was transferred to the ICU early this morning and started on an insulin drip. The patient is now intubated and on a mechanical vent. SW to contact and fax updates to Yari at [facility]. MELISSA to continue to follow.
[2020-03-21 14:53] LABS: CALCIUM 6.2 mg/dL (8.4-10.2); CREATININE, serum 0.88 (0.52-1.25); POTASSIUM 3.3 mmol/L (3.4-5.0)
[2020-03-21 16:04] LABS: ARTERIAL BLD GAS O2 SATURATION 95.8 % (92-100); ARTERIAL BLD GAS TCO2 CT 16.8; ARTERIAL BLOOD GAS BASE EXCESS -6.5 (-2-2); ARTERIAL BLOOD GAS HCO3 16.1 meq/L (22-26); ARTERIAL BLOOD GAS PCO2 23.1 mmHg (35-45); ARTERIAL BLOOD GAS PO2 75.2 mmHg (80-100); ARTERIAL BLOOD GAS pH 7.46 (7.35-7.45)
[2020-03-21 18:25] LABS: CALCIUM 8.1 mg/dL (8.4-10.2); CREATININE, serum 1.33 (0.52-1.25); POTASSIUM 3.9 mmol/L (3.4-5.0)
--- NOTE | 2020-03-21 21:24 | NUR ---
APON ARRIVING IN ROOM AND CHECKING VENT SETTINGS HE HAD FOUND A PEEP OF 2 INSTEAD OF A PEEP OF 5 PER SETTINGS. TALKED TO RN ABOUT IF DOCTOR WANTED SETTINGS CHANGED. SHE SAID SHE WAS UNAWARE OF SETTING CHANGES. I CHANGED THE PEEP BACK TO 5.
[2020-03-22] VITALS (687 sets, daily range): BP systolic 90–129; BP diastolic 53–76; PULSE 74–91; TEMP 98–98.9; O2SAT 90–100
--- NOTE | 2020-03-22 01:57 | NUR ---
Rosa called regarding decreased urine output on pt. 50ml out since shift change. Pt does not have increased edema at this time. BP 102/58, HR 90, BG 168. Pt continues on 1/2 NS at 150, free water flush 400 Q6. New order for NS 250ml bolus given.
[2020-03-22 05:05] LABS: BASO % 0.1 % (0.0-2.0); GRAN # 12.7 (1.4-6.5); GRAN % 86.6 % (42.2-75.2); LYMPH # 1.2 (1.2-3.4); LYMPH % 8.4 % (20.0-51.0); MEAN CELL VOLUME 85 fl (80.0-100.0); MEAN CORPUSCULAR HGB CONC 30 g/dl (33.0-37.0); MEAN PLATELET VOLUME 9.8 fl (7.4-10.4); MONO # 0.7 (0.1-0.6); MONO % 4.4 % (1.7-9.3); PLATELET COUNT 168 K/mm3 (130-400); RED BLOOD COUNT 2.83 M/mm3 (4.10-5.30); REDCELL DISTRIBUTION WIDTH-CV 18.2 % (11.5-14.5)
[2020-03-22 05:06] LABS: HEMATOCRIT 23.9 % (37.0-47.0); HEMOGLOBIN 7.2 g/dl (12.5-16.0); MEAN CORPUSCULAR HEMOGLOBIN 25 pg (27.0-31.0)
[2020-03-22 05:09] LABS: ARTERIAL BLD GAS O2 SATURATION 95.2 % (92-100); ARTERIAL BLOOD GAS BASE EXCESS -8.8 (-2-2); ARTERIAL BLOOD GAS HCO3 14.3 meq/L (22-26); ARTERIAL BLOOD GAS PO2 76.4 mmHg (80-100); ARTERIAL BLOOD GAS pH 7.43 (7.35-7.45)
[2020-03-22 05:12] LABS: ARTERIAL BLOOD GAS PCO2 22.1 mmHg (35-45)
[2020-03-22 05:45] LABS: ALBUMIN 2.6 gm/dL (3.5-5.0); BILIRUBIN,TOTAL 0.2 mg/dL (0.0-1.0); CALCIUM 7.1 mg/dL (8.4-10.2); CREATININE, serum 1.75 (0.52-1.25); MAGNESIUM 1.4 mg/dL (1.6-2.3); PHOSPHOROUS 2.8 mg/dL (2.5-4.5); POTASSIUM 4.2 mmol/L (3.4-5.0)
--- NOTE | 2020-03-22 05:50 | NUR ---
UNABLE TO GET PATIENT AWAKE ENOUGH FOR AM WEANING TRIAL. EVEN AFTER SPEAKING TO HER AND CUTTING SEDATION. NOTIFIED RN OF NOT BEING ABLE TO PERFORM WEANING TRIAL.
--- NOTE | 2020-03-22 06:25 | NUR ---
CALLED [facility] AT 0507 TO REPORT CRITICAL ABG RESULTS. SPOKE WITH DR. SHIPMAN AND RECOMMENDATION WAS NOT TO CHANGE ANYTHING.
[2020-03-22 15:44] LABS: CALCIUM 7.2 mg/dL (8.4-10.2); CREATININE, serum 1.86 (0.52-1.25)
[2020-03-22 18:58] LABS: CALCIUM 7.2 mg/dL (8.4-10.2); CREATININE, serum 1.95 (0.52-1.25); POTASSIUM 3.9 mmol/L (3.4-5.0)
--- NOTE | 2020-03-22 19:00 | NUR ---
RECEIVED REPORT FROM KAREEM GOSS. PT RESTING EASILY ON CURRENT VENT SETTINGSl TV 470, PEEP 5, RR 20, FIO2 30%. FC PATENT AND DRIANING TO GRAVITY. SEE GTT FLOWSHEET. OGT AT 61CM. ETT 21 AT THE LIPS. OGT SET FOR FREE WATER FLUSHES OF 150ML Q6H. VSS. PER REPORT, PHYSICIANS AWARE OF PT'S LOW UO.
--- NOTE | 2020-03-22 20:27 | NUR ---
SPOKE WITH DR VOGEL ABOUT LAST NA 147. PHYSICIAN ORDERS TO STOP FREE WATER FLUSHES AND HOLD DESMOPRESSIN TOMORROW, SEE ORDERS.
[2020-03-22 22:38] LABS: CALCIUM 7.1 mg/dL (8.4-10.2); CREATININE, serum 1.84 (0.52-1.25); POTASSIUM 3.6 mmol/L (3.4-5.0)
[2020-03-23] VITALS (664 sets, daily range): BP systolic 114–133; BP diastolic 66–83; PULSE 70–107; TEMP 97.8–98.5; O2SAT 86–100
[2020-03-23 02:40] LABS: CALCIUM 7.1 mg/dL (8.4-10.2); CREATININE, serum 1.67 (0.52-1.25)
[2020-03-23 04:57] LABS: BASO % 0.2 % (0.0-2.0); GRAN % 81.4 % (42.2-75.2); LYMPH # 1.3 (1.2-3.4); LYMPH % 11.9 % (20.0-51.0); MEAN CELL VOLUME 84 fl (80.0-100.0); MEAN CORPUSCULAR HGB CONC 30 g/dl (33.0-37.0); MEAN PLATELET VOLUME 9.5 fl (7.4-10.4); MONO # 0.6 (0.1-0.6); MONO % 5.2 % (1.7-9.3); PLATELET COUNT 120 K/mm3 (130-400); RED BLOOD COUNT 2.81 M/mm3 (4.10-5.30); REDCELL DISTRIBUTION WIDTH-CV 18.3 % (11.5-14.5)
[2020-03-23 04:59] LABS: HEMATOCRIT 23.6 % (37.0-47.0); MEAN CORPUSCULAR HEMOGLOBIN 25 pg (27.0-31.0)
[2020-03-23 05:09] LABS: ALBUMIN 2.6 gm/dL (3.5-5.0); BILIRUBIN,TOTAL 0.4 mg/dL (0.0-1.0); CALCIUM 6.9 mg/dL (8.4-10.2); CREATININE, serum 1.63 (0.52-1.25); MAGNESIUM 2.2 mg/dL (1.6-2.3); PHOSPHOROUS 3.5 mg/dL (2.5-4.5); POTASSIUM 3.6 mmol/L (3.4-5.0); TOTAL PROTEIN 5.1 gm/dL (6.4-8.2)
--- NOTE | 2020-03-23 05:29 | NUR ---
RT AT BEDSIDE REQUESTING MAJORITY OF SEDATION TO BE CUT DOWN TO HELP WIHT WAKING UP FOR POSSIBLE EXTUBATION THIS MORNING AFTER WEANING TRIAL. VSS. INFORMED RT PT HAS FOUGHT VENT AND MOVED A LOT IN BED THROUGHOUT THE NIGHT CAUSING TO INCREASE SEDATION. WILL MONITOR PT CLOSELY TO HELP KEEP HER CALM DURING THIS WEANING TRIAL. AWAITING FOR ABG RESULTS AND FOR RT TO START WEANING TRIAL AT THIS TIME.
[2020-03-23 05:38] LABS: ARTERIAL BLD GAS O2 SATURATION 95.1 % (92-100); ARTERIAL BLD GAS TCO2 CT 16.4; ARTERIAL BLOOD GAS BASE EXCESS -8.4 (-2-2); ARTERIAL BLOOD GAS HCO3 15.6 meq/L (22-26); ARTERIAL BLOOD GAS PCO2 24.9 mmHg (35-45); ARTERIAL BLOOD GAS PO2 76.1 mmHg (80-100); ARTERIAL BLOOD GAS pH 7.42 (7.35-7.45)
--- NOTE | 2020-03-23 06:17 | NUR ---
PATIENT ON CPAP TRIAL OF 5/5 THIS MORNING ON MINIMAL SEDATION. TOLERATING TRIAL WELL THIS MORNING. RN NOTIFIED OF TRIAL BEGINNING.
[2020-03-23 10:22] LABS: CALCIUM 7.2 mg/dL (8.4-10.2); CREATININE, serum 1.53 (0.52-1.25); POTASSIUM 3.7 mmol/L (3.4-5.0)
[2020-03-23 14:35] LABS: CALCIUM 7.2 mg/dL (8.4-10.2); CREATININE, serum 1.42 (0.52-1.25); POTASSIUM 4.3 mmol/L (3.4-5.0)
[2020-03-23 18:10] LABS: CALCIUM 7.2 mg/dL (8.4-10.2); CREATININE, serum 1.35 (0.52-1.25); POTASSIUM 4.1 mmol/L (3.4-5.0)
--- NOTE | 2020-03-23 19:10 | NUR ---
RECEIVED REPORT FROM KAREEM VENCES. PT TOLERATING CURRENT VENT SETTINGS: TV 470, PEEP 5, RR 20, FIO2 30%. FC PATENT AND DRAINING TO GRAVITY. OGT AT 61CM WITH FREE WATER FLUSHES IN PUMP SET FOR 300ML Q6H. VSS. SEE GTT FLOWSHEET.
[2020-03-23 22:31] LABS: CALCIUM 7.2 mg/dL (8.4-10.2); CREATININE, serum 1.28 (0.52-1.25); POTASSIUM 3.8 mmol/L (3.4-5.0)
[2020-03-24] VITALS (538 sets, daily range): BP systolic 122–165; BP diastolic 69–104; PULSE 60–94; TEMP 97.5–98.1; O2SAT 63–100
[2020-03-24 05:12] LABS: ARTERIAL BLD GAS O2 SATURATION 94.8 % (92-100); ARTERIAL BLD GAS TCO2 CT 16.1; ARTERIAL BLOOD GAS BASE EXCESS -7.7 (-2-2); ARTERIAL BLOOD GAS HCO3 15.4 meq/L (22-26); ARTERIAL BLOOD GAS PCO2 23.2 mmHg (35-45); ARTERIAL BLOOD GAS PO2 76.2 mmHg (80-100); ARTERIAL BLOOD GAS pH 7.44 (7.35-7.45)
[2020-03-24 05:17] LABS: MEAN CELL VOLUME 83 fl (80.0-100.0); MEAN CORPUSCULAR HGB CONC 31 g/dl (33.0-37.0); MEAN PLATELET VOLUME 10.4 fl (7.4-10.4); PLATELET COUNT 109 K/mm3 (130-400); RED BLOOD COUNT 2.71 M/mm3 (4.10-5.30)
[2020-03-24 05:22] LABS: HEMATOCRIT 22.6 % (37.0-47.0); MEAN CORPUSCULAR HEMOGLOBIN 25 pg (27.0-31.0)
[2020-03-24 05:24] LABS: HEMOGLOBIN 6.9 g/dl (12.5-16.0)
[2020-03-24 05:36] LABS: ALBUMIN 2.5 gm/dL (3.5-5.0); BILIRUBIN,TOTAL 0.4 mg/dL (0.0-1.0); CALCIUM 7.2 mg/dL (8.4-10.2); CREATININE, serum 1.19 (0.52-1.25); MAGNESIUM 2.2 mg/dL (1.6-2.3); PHOSPHOROUS 3.3 mg/dL (2.5-4.5); POTASSIUM 3.7 mmol/L (3.4-5.0)
--- NOTE | 2020-03-24 05:49 | NUR ---
PATIENT STARTED ON CPAP TRIAL AT 0543 WITH 5/5 GETTING ADEQUATE TIDAL VOLUMES. RN WAS NOTIFIED.
--- NOTE | 2020-03-24 05:50 | NUR ---
RT AT BEDSIDE PLACING PT ON WEANING TRIAL. PT TURNS HEAD AND EYES WHEN RN TALKS TO PT. VSS. PT ABLE TO CALM DOWN. WILL MONITOR CLOSELY WHILE ON WEANING TRIAL.
[2020-03-24 06:29] LABS: ANISOCYTOSIS 2+; HYPOCHROMIA 1+; LYMPHOCYTE 3 % (20.0-51.0); NEUTROPHILS 97 % (42.0-75.2); PLATELET ESTIMATE DECREASED (NORMAL)
--- NOTE | 2020-03-24 09:55 | NUR ---
Per Dr. Faustin, propofol and fentanyl was discontinued at 0755, ABG was drawn and patient was extubated at 0855. Restraints were removed at 0900. Patient able to follow commands but teary and requested staff leave her alone. Patient tolerating O2 via NC at 2LPM well. Occasional cough noted with some sputum production-unable to assess since patient swallows it. Patient was able to swallow water without any chocking or coughing.
[2020-03-24 11:57] LABS: ARTERIAL BLD GAS O2 SATURATION 95.1 % (92-100); ARTERIAL BLD GAS TCO2 CT 17.2; ARTERIAL BLOOD GAS BASE EXCESS -6.8 (-2-2); ARTERIAL BLOOD GAS HCO3 16.4 meq/L (22-26); ARTERIAL BLOOD GAS PCO2 24.8 mmHg (35-45); ARTERIAL BLOOD GAS pH 7.44 (7.35-7.45)
--- NOTE | 2020-03-24 15:02 | NUR ---
Credit Collector faxed udpates to Yari at [facility].
[2020-03-24 16:23] LABS: HEMATOCRIT 27.5 % (37.0-47.0); HEMOGLOBIN 8.5 g/dl (12.5-16.0)
--- NOTE | 2020-03-24 19:27 | NUR ---
REPORT RECEIVED FROM KAREEM FRASER.
--- NOTE | 2020-03-24 21:19 | NUR ---
PT'S CSF HERPES STILL PENDING AND THIS LPN RN TALKED TO LAB AND PER ANA PAULA, RESULTS SHOULD BE OUT BY TOMORROW.
[2020-03-25] VITALS (450 sets, daily range): BP systolic 144–152; BP diastolic 88–101; PULSE 58–77; TEMP 97.6–98.1; O2SAT 81–100
--- NOTE | 2020-03-25 02:15 | NUR ---
PT TRYING TO GET OUT OF BED. PT RE-ORINTED WITH NO SUCCESS. PT KEEPS YELING STOP IT EVERY TIME STAFF TRIES TO REPOSITION HER. ALSO, PT REFUSED BREATHING TREATMENT AND KEEPS YELLING "STOP IT! LEAVE ME ALONE!" AND BEING COMBATIVE SHE TRIES TO SWING HER ARM TO STAFF.PT MOANING/CRYING AND WHEN ASKED WHY SHE WANTS TO GET OUT DAR BED, PT VERBALZED SHE WANTED TO SE [place] OUTSIDE OR WANT TO GO HOME. AGAIN, PT TRIED TO RE-ORIENT WITH NO SUCCESS. PT WAS GIVEN HALDOL AFTER. BED ALARM ON. WILL CONTINUE MONITORING.
--- NOTE | 2020-03-25 02:24 | NUR ---
PT HALLUCINATING AND TALKING TO HERSELF IN THE ROOM.
[2020-03-25 05:10] LABS: MEAN CELL VOLUME 84 fl (80.0-100.0); MEAN CORPUSCULAR HGB CONC 31 g/dl (33.0-37.0); MEAN PLATELET VOLUME 10.5 fl (7.4-10.4); PLATELET COUNT 112 K/mm3 (130-400)
[2020-03-25 05:12] LABS: HEMATOCRIT 27.7 % (37.0-47.0); HEMOGLOBIN 8.5 g/dl (12.5-16.0); MEAN CORPUSCULAR HEMOGLOBIN 26 pg (27.0-31.0)
[2020-03-25 05:33] LABS: CREATININE, serum 1.13 (0.52-1.25); POTASSIUM 3.7 mmol/L (3.4-5.0)
--- NOTE | 2020-03-25 07:22 | NUR ---
REPORT GIVEN TO KAREEM FRASER.
--- NOTE | 2020-03-25 15:16 | NUR ---
The patient is now extubated. MELISSA met with the patient and her , Octavio, to review d/c plan. The patient was sleeping. Octavio reports that his goal is for the patient to return back home with him, but understands that she cannot in this condition. He is agreeable for MELISSA to send mass referrals. MELISSA contacted and faxed a referral to [facility], [place], [facility], [facility], [facility], [facility], [facility], and [facility]. MELISSA faxed updates to Yari at [facility]. Socorro, at [place], reports that they do not have any beds available at this time. SW awaiting other screens.
[2020-03-25 16:47] LABS: CREATININE, serum 1.08 (0.52-1.25); POTASSIUM 3.9 mmol/L (3.4-5.0)
--- NOTE | 2020-03-25 19:30 | NUR ---
Bedside report received from KAREEM Umaña
--- NOTE | 2020-03-25 20:00 | NUR ---
Patient resting in bed at this time, sleeping. She was sedated for her MRI earlier, but has not come off of the medication yet. Patient does open her eyes to her name, but does not follow commands and falls asleep again quickly after. Assessment complete, see shift assessment for details. Vitals are stable. Showing no signs of pain or distress. Will continue to monitor. Call light within reach.
[2020-03-26] VITALS (725 sets, daily range): BP systolic 137–167; BP diastolic 11–115; PULSE 79–92; TEMP 98.5–99.7; O2SAT 87–100
--- NOTE | 2020-03-26 00:45 | NUR ---
Patient is now very awake and restless. She is yelling and very confused. patient is unable to answer any orientation questions including to self. Patient has been continuously trying to climb out of bed and she is not easily redirected. Will continue to monitor closely. Will use PRN haldol if necessary
--- NOTE | 2020-03-26 05:45 | NUR ---
Patient is having auditory and visual hallucinations right now. She is talking to people as if having a conversation at the other side of the room and is looking like she is tracking someone sitting in the chair. Patient does not redirect, just continues her conversation. Will continue to monitor.
[2020-03-26 05:50] LABS: BASO % 0.2 % (0.0-2.0); EOS # 0.3 (0.0-0.7); EOS % 2.7 % (0-4.0); GRAN # 6.9 (1.4-6.5); GRAN % 73.8 % (42.2-75.2); LYMPH # 1.3 (1.2-3.4); LYMPH % 13.5 % (20.0-51.0); MEAN CELL VOLUME 83 fl (80.0-100.0); MEAN CORPUSCULAR HGB CONC 32 g/dl (33.0-37.0); MEAN PLATELET VOLUME 10.9 fl (7.4-10.4); MONO # 0.8 (0.1-0.6); MONO % 8.7 % (1.7-9.3); PLATELET COUNT 170 K/mm3 (130-400); RED BLOOD COUNT 3.59 M/mm3 (4.10-5.30)
[2020-03-26 05:51] LABS: HEMATOCRIT 29.9 % (37.0-47.0); HEMOGLOBIN 9.5 g/dl (12.5-16.0); MEAN CORPUSCULAR HEMOGLOBIN 26 pg (27.0-31.0)
[2020-03-26 05:59] LABS: CALCIUM 8.4 mg/dL (8.4-10.2); CREATININE, serum 1.08 (0.52-1.25); POTASSIUM 3.5 mmol/L (3.4-5.0)
--- NOTE | 2020-03-26 09:46 | NUR ---
Anamika from [facility] notified of tube feeds to be initiated. Annabelle from notified of [facility] referral.
--- NOTE | 2020-03-26 10:08 | NUR ---
Adalgisa, at [facility], reports that they are unable to accept the patient. Dr. Faustin is recommending [facility] for the patient. MELISSA contacted and faxed a referral to Hitesh at [facility]. Awaiting Screen. MELISSA attempted to contact the patient's , Octavio, to discuss [facility]. MELISSA left him a voicemail.
--- NOTE | 2020-03-26 11:45 | NUR ---
The patient's , Octavio, arrived to the hospital. MELISSA updated Octavio about [facility]. Octavio reports that Dr. Faustin talked to him about [facility] and he is agreeable with his tranferring there. SW to continue to follow.
--- NOTE | 2020-03-26 15:31 | NUR ---
Hitesh, at [facility], reports that the patient does meet criteria and that he plans on contacting the patient's . SW to continue to follow.
--- NOTE | 2020-03-26 16:21 | NUR ---
Hitesh, at [facility], reports that they have a bed available in their [place] location and that he spoke to the patient's , Octavio, and he is agreeable with the patient going to [place]. Hitesh states that they should be able to accept the patient tomorrow, 10/25. He states that the [place] director is reviewing the case now. MELISSA contacted the patient's , Octavio, and reviewed the above plan. Octavio confirms that he is agreeable with the patient going to the [place] location. He asked that SW contact his cell phone tomorrow morning (#[phone]), if ready to d/c and with transport time. [facility] is being utilized tomorrow morning on another trip. MELISSA contacted the captain at [facility]. Their captain reports that they should be able to transport the patient. He states that he will notify the [employer] on tomorrow. MELISSA updated the patient's RN and the PA on the above information. MELISSA to continue to follow.
--- NOTE | 2020-03-26 19:19 | NUR ---
Report given to KAREEM Johnson.
[2020-03-27] VITALS (155 sets, daily range): BP systolic 139–153; BP diastolic 86–92; PULSE 83–92; TEMP 99.3–99.8; O2SAT 92–99
[2020-03-27 05:50] LABS: CALCIUM 7.9 mg/dL (8.4-10.2); CREATININE, serum 1.2 (0.52-1.25)
[2020-03-27 06:00] LABS: POTASSIUM 2.9 mmol/L (3.4-5.0)
--- NOTE | 2020-03-27 08:25 | NUR ---
PICC intact left upper arm. Left upper arm PICC dressing change done with sterile technique. Insertion site cleansed with ChloraPrep 1, chlorhdine impregnated disc applied, skin prep, StatLock, and Tegaderm applied. No signs or symptoms of IV complications noted. No concerns voiced. Arm wrapped with Alex to protect catheter.
--- NOTE | 2020-03-27 09:38 | NUR ---
Hitesh, at [facility], reports that the director at the [place] location approved the patient and that they are able to accept her today. MELISSA notified the clinical team. MELISSA provided the RN with the phone number for RN report. MELISSA provided the PA with the phone number for provider report. MELISSA contacted and updated the patient's , Octavio. Octavio is agreeable with the patient tranferring to [facility] in [place], [place]. The patient is to discharge today, 03/27, to [facility] in [place], [place]. Transportation was scheduled at 1130, via [facility]. MELISSA informed the clinical team, Hitesh at [facility], and the patient's of transport time. They were all agreeable to the time. SW also read the EMS Transfer Consent Forms outloud to the patient's , via phone. The patient's verbalized understanding and gave SW approval to sign the forms on his behalf. No additional needs at this time.
[2020-03-27] MEDS ORDERED: LOVENOX 3030 MG/0.3 SQ (10:58)
[2020-03-27] MEDS ORDERED: IPRATROPIUM BROM3 M1 IH ×2 (11:01)
[2020-03-27] MEDS ORDERED: SEROQUEL 2525 MG/TAB PO (11:03)
[2020-03-27] MEDS ORDERED: ATIVAN 2MG/ML2 MG/ML IV (11:03)
--- NOTE | 2020-03-27 12:36 | NUR ---
REPORT CALLED TO JAYCEE, [facility]. EMS LEFT WITH PATIENT AT APPROX 1215.
== END 2020-03-27 12:37 | DRG 643 ==
LOC: COL.ER 04:45 → MEDICAL 09:32 → ICU 03-21
PROVIDERS: Emergency Medicine; Hospitalist; Internal Medicine; Internal Medicine Critical Care Medicine; Internal Medicine Nephrology; Internal Medicine Pulmonary Disease; Physician Assistant; Student in an Organized Health Care Education/Training Program; ADMIT Family Medicine
PROC: 05JY3ZZ Inspection of Upper Vein, Percutaneous Approach (ICD-10-PCS; 2020-03-19)
PROC: 02HV33Z Insertion of Infusion Device into Superior Vena Cava, Percutaneous Approach (ICD-10-PCS; 2020-03-19)
PROC: 009U3ZX Drainage of Spinal Canal, Percutaneous Approach, Diagnostic (ICD-10-PCS; 2020-03-19)
PROC: 5A1945Z Respiratory Ventilation, 24-96 Consecutive Hours (ICD-10-PCS; principal; 2020-03-21)
PROC: 0BH17EZ Insertion of Endotracheal Airway into Trachea, Via Natural or Artificial Opening (ICD-10-PCS; 2020-03-21)
DX: E23.0 Hypopituitarism (principal); J96.01 Acute respiratory failure with hypoxia; G93.41 Metabolic encephalopathy; E87.0 Hyperosmolality and hypernatremia; J98.11 Atelectasis; K86.2 Cyst of pancreas; F05 Delirium due to known physiological condition; R63.0 Anorexia; E78.5 Hyperlipidemia, unspecified; K21.9 Gastro-esophageal reflux disease without esophagitis; R73.9 Hyperglycemia, unspecified; E03.9 Hypothyroidism, unspecified; M19.90 Unspecified osteoarthritis, unspecified site; J44.9 Chronic obstructive pulmonary disease, unspecified; Z87.891 Personal history of nicotine dependence; Z88.6 Allergy status to analgesic agent; Z20.828 Contact with and (suspected) exposure to other viral communicable diseases; Z88.5 Allergy status to narcotic agent; R94.5 Abnormal results of liver function studies; E87.6 Hypokalemia; R74.8 Abnormal levels of other serum enzymes; E83.39 Other disorders of phosphorus metabolism; R50.9 Fever, unspecified; D64.9 Anemia, unspecified; D69.6 Thrombocytopenia, unspecified
CPT/HCPCS: 99233-AI; 99239; A4217; A9585; C1751; C1892; C9113; G0378; J0133; J0330; J0360; J0692; J0696; J1630; J1650; J1720; J1815; J1940; J2060; J2405; J2597; J2704; J2920; J3010; J3370; J3475; J3480; J7030; J7050; J7060; J7070; J7131; P9016

== ENCOUNTER 2020-04-24 06:52 | Emergency (ER) | payer MEDICARE, OTHER ==
[~2020-04-24] VITALS: Ht 154.9 cm; Wt 97.7 kg
[~2020-04-24 06:52] MED LIST changes: +ATIVAN 2MG/ML2 MG/ML IV; +ATROVENT I0.2 MG/1 M IH; +INCRUSE EL62.5 MCG/A IH; +IPRATROPIUM BROM3 M1 IH; +LIPITOR 10MG10 MG PO; +LOVENOX 3030 MG/0.3 SQ; +MELATIN 3 MG-11 TAB PO; +MIRALAX PA17 GM/Dose PO; +PROTONIX 40MG T40 MG PO; +REMERON 15M15 MG/TA1 PO; +REQUIP 0.5MG0.5 MG PO; +SEROQUEL 2525 MG/TAB PO; +TYLENOL 325MG325 MG PO; +ULTRAM ER100 MG PO
[2020-04-24 06:56] VITALS: TEMP 98.8
[2020-04-24] MEDS ORDERED: CELEBREX 200MG200 MG PO (08:07)
[2020-04-24] MEDS ORDERED: PROVIGIL200 MG PO (08:08)
[2020-04-24] MEDS ORDERED: ZOCOR 10MG10 MG PO (08:12)
[2020-04-24 08:14] VITALS: BP 152/90; PULSE 81
== END 2020-04-24 08:30 | disposition home or self-care (01) ==
LOC: COL.ER 06:52
DX: R14.0 Abdominal distension (gaseous) (principal); Z88.5 Allergy status to narcotic agent; Z88.6 Allergy status to analgesic agent; Z79.1 Long term (current) use of non-steroidal anti-inflammatories (NSAID)

== ENCOUNTER 2021-02-02 08:39 | Emergency (ER) | payer MEDICARE, OTHER ==
[~2021-02-02] VITALS: Ht 152.4 cm; Wt 90.9 kg
[2021-02-02 08:53] VITALS: TEMP 98.2
[2021-02-02 09:49] LABS: BASO % 0.1 % (0.0-2.0); GRAN # 11.9 (1.4-6.5); GRAN % 84.6 % (42.2-75.2); LYMPH % 7.2 % (20.0-51.0); MEAN CELL VOLUME 77 fl (80.0-100.0); MEAN CORPUSCULAR HGB CONC 27 g/dl (33.0-37.0); MEAN PLATELET VOLUME 9.1 fl (7.4-10.4); MONO % 7.2 % (1.7-9.3); PLATELET COUNT 431 K/mm3 (130-400); RED BLOOD COUNT 4.45 M/mm3 (4.10-5.30); REDCELL DISTRIBUTION WIDTH-CV 19.7 % (11.5-14.5)
[2021-02-02 09:50] LABS: HEMATOCRIT 34.1 % (37.0-47.0); HEMOGLOBIN 9.2 g/dl (12.5-16.0); MEAN CORPUSCULAR HEMOGLOBIN 21 pg (27.0-31.0)
[2021-02-02 09:56] LABS: COLLECTION METHOD CLEAN CATCH
[2021-02-02 09:59] LABS: ALBUMIN 4.1 gm/dL (3.5-5.0); BILIRUBIN,TOTAL 0.3 mg/dL (0.0-1.0); CALCIUM 9.1 mg/dL (8.4-10.2); CREATININE, serum 0.71 (0.52-1.25); POTASSIUM 4.2 mmol/L (3.4-5.0); TOTAL PROTEIN 7.5 gm/dL (6.4-8.2)
[2021-02-02 10:37] LABS: PH 5 (5-8); SQUAMOUS EPITHELIAL 0-2 /hpf; URINE APPEARANCE Clear; URINE BACTERIA None Seen /hpf; URINE BILIRUBIN Negative (NEGATIVE); URINE BLOOD 2+ (NEGATIVE); URINE COLOR Yellow; URINE GLUCOSE Negative (NEGATIVE); URINE KETONE Negative (NEGATIVE); URINE LEUKOCYTE ESTERASE Negative (NEGATIVE); URINE NITRATE Negative (NEGATIVE); URINE PROTEIN(semi-quant) Negative (NEGATIVE); URINE RBC 0-2 /hpf; URINE UROBILINOGEN Negative (NEGATIVE)
[2021-02-02 13:00] VITALS: BP 168/95; PULSE 86
== END 2021-02-02 13:00 | disposition home or self-care (01) ==
LOC: COL.ER 08:39
PROVIDERS: Family Medicine
DX: M54.9 Dorsalgia, unspecified (principal); T38.0X5A Adverse effect of glucocorticoids and synthetic analogues, initial encounter; E86.0 Dehydration; R47.01 Aphasia; J44.9 Chronic obstructive pulmonary disease, unspecified; Z87.891 Personal history of nicotine dependence
CPT/HCPCS: J7120

== ENCOUNTER 2021-03-24 16:36 | Emergency (ER) | payer MEDICARE, OTHER ==
[~2021-03-24] VITALS: Ht 152.4 cm; Wt 90.9 kg
[2021-03-24] MEDS ORDERED: FLEXERIL 1010 MG/TAB PO (19:24)
[2021-03-24] MEDS ORDERED: PERCOCET 325 MG1 TA2 PO (19:24)
[2021-03-24 19:45] VITALS: BP 132/74; PULSE 70; TEMP 98
== END 2021-03-24 19:45 | disposition home or self-care (01) ==
LOC: COL.ER 16:36
DX: M25.551 Pain in right hip (principal); G89.29 Other chronic pain; J44.9 Chronic obstructive pulmonary disease, unspecified; Z88.6 Allergy status to analgesic agent; Z79.899 Other long term (current) drug therapy
CPT/HCPCS: J2175; J2550

== ENCOUNTER 2021-05-18 08:39 | Emergency (ER) | payer MEDICARE, OTHER ==
[~2021-05-18] VITALS: Ht 152.4 cm; Wt 90.9 kg
[~2021-05-18 08:39] MED LIST changes: +FLEXERIL 1010 MG/TAB PO
[2021-05-18 08:50] VITALS: TEMP 98.8
[2021-05-18 09:35] VITALS: BP 142/98; PULSE 89
[2021-05-19] MEDS ORDERED: NORCO 325 MG-51 TAB PO (14:23)
== END 2021-05-18 09:36 | disposition home or self-care (01) ==
LOC: COL.ER 08:39
DX: M25.551 Pain in right hip (principal); G89.29 Other chronic pain; Z79.891 Long term (current) use of opiate analgesic
CPT/HCPCS: J1885

== ENCOUNTER 2021-05-19 13:01 | Emergency (ER) | payer MEDICARE, OTHER ==
[~2021-05-19] VITALS: Ht 152.4 cm; Wt 90.9 kg
[2021-05-19 13:11] VITALS: TEMP 98.1
[2021-05-19] MEDS ORDERED: NORCO 325 MG-51 TAB PO (14:23)
[2021-05-19 14:27] VITALS: BP 130/79; PULSE 88
== END 2021-05-19 14:21 | disposition home or self-care (01) ==
LOC: COL.ER 13:01
DX: M25.551 Pain in right hip (principal); R10.9 Unspecified abdominal pain; J44.9 Chronic obstructive pulmonary disease, unspecified; E03.9 Hypothyroidism, unspecified; K21.9 Gastro-esophageal reflux disease without esophagitis; E78.00 Pure hypercholesterolemia, unspecified; Z88.5 Allergy status to narcotic agent; Z79.890 Hormone replacement therapy; Z79.899 Other long term (current) drug therapy
CPT/HCPCS: J1170

== ENCOUNTER 2021-05-21 09:02 | Emergency (ER) | payer MEDICARE, OTHER ==
[~2021-05-21] VITALS: Ht 152.4 cm; Wt 90.9 kg
[~2021-05-21 09:02] MED LIST changes: +NORCO 325 MG-51 TAB PO
[2021-05-21] MEDS ORDERED: MOBIC15 MG PO (13:25)
[2021-05-21 13:40] VITALS: BP 148/76; PULSE 80; TEMP 98.1
== END 2021-05-21 13:40 | disposition home or self-care (01) ==
LOC: COL.ER 09:02
DX: M54.41 Lumbago with sciatica, right side (principal); J44.9 Chronic obstructive pulmonary disease, unspecified; Z79.899 Other long term (current) drug therapy

== ENCOUNTER 2021-05-23 13:45 | Emergency (ER) | payer MEDICARE, OTHER ==
[~2021-05-23] VITALS: Ht 152.4 cm; Wt 90.9 kg
[~2021-05-23 13:45] MED LIST changes: +MOBIC15 MG PO
[2021-05-23 13:57] VITALS: TEMP 99
[2021-05-23] MEDS ORDERED: ROBAXIN 75750 MG/TAB PO (14:29)
[2021-05-23] MEDS ORDERED: LIDODERM 5% PATC1 EA TP (14:29)
[2021-05-23 14:39] VITALS: BP 150/89; PULSE 98
[2021-05-24] MEDS ORDERED: ROXICODONE 55 MG/TAB PO (08:28)
[2021-05-24] MEDS ORDERED: NORVASC 5MG5 MG/TAB PO (13:41)
== END 2021-05-23 14:43 | disposition home or self-care (01) ==
LOC: COL.ER 13:45
DX: M79.2 Neuralgia and neuritis, unspecified (principal); J44.9 Chronic obstructive pulmonary disease, unspecified; E03.9 Hypothyroidism, unspecified; K21.9 Gastro-esophageal reflux disease without esophagitis; E78.00 Pure hypercholesterolemia, unspecified; Z79.890 Hormone replacement therapy; Z79.899 Other long term (current) drug therapy
CPT/HCPCS: J2270

== ENCOUNTER 2021-05-23 18:27 | Inpatient (IN) | payer MEDICARE, OTHER ==
[~2021-05-23] VITALS: Ht 157.5 cm; Wt 102.0 kg
[~2021-05-23 18:27] MED LIST changes: +LIDODERM 5% PATC1 EA TP; +ROBAXIN 75750 MG/TAB PO
[2021-05-23 18:48] LABS: BASO # 0.1 K/mm3 (0.0-0.2); BASO % 0.4 % (0.0-2.0); EOS # 0.1 K/mm3 (0.0-0.7); EOS % 0.7 % (0-4.0); GRAN # 9.4 K/mm3 (1.4-6.5); GRAN % 68.7 % (42.2-75.2); LYMPH # 3.1 K/mm3 (1.2-3.4); LYMPH % 22.3 % (20.0-51.0); MEAN CELL VOLUME 68 fl (80.0-100.0); MEAN CORPUSCULAR HGB CONC 30 g/dl (33.0-37.0); MEAN PLATELET VOLUME 8.3 fl (7.4-10.4); MONO % 7.4 % (1.7-9.3); PLATELET COUNT 442 K/mm3 (130-400); RED BLOOD COUNT 4.43 M/mm3 (4.10-5.30); REDCELL DISTRIBUTION WIDTH-CV 19.1 % (11.5-14.5)
[2021-05-23 18:49] LABS: HEMATOCRIT 30.2 % (37.0-47.0); HEMOGLOBIN 9.1 g/dl (12.5-16.0); MEAN CORPUSCULAR HEMOGLOBIN 21 pg (27.0-31.0)
[2021-05-23 19:07] LABS: ALANINE AMINOTRANSFERASE 15 U/L (0-55); ALBUMIN 3.4 gm/dL (3.4-4.8); ALCOHOL(ethanol),MEDICAL < 10 mg/dL (0-10); ALKALINE PHOSPHATASE 92 U/L (40-150); ANION GAP 14 mmol/L (7-16); AST,SGOT 16 U/L (5-34); BILIRUBIN,TOTAL 0.3 mg/dL (0.2-1.2); BLOOD UREA NITROGEN 21 mg/dL (10-20); CALCIUM 9.6 mg/dL (8.4-10.2); CARBON DIOXIDE 17 mmol/L (23-31); CHLORIDE 104 mmol/L (98-107); CREATININE, serum 0.98 mg/dL (0.57-1.11); GLUCOSE 137 mg/dL (70-99); POTASSIUM 4.1 mmol/L (3.5-4.5); SALICYLATE < 5.0 mg/dL (15.0-30.0); SODIUM 135 mmol/L (136-145); TOTAL PROTEIN 6.9 gm/dL (6.2-8.1)
[2021-05-23 19:13] LABS: TROPONIN-I < 0.010 ng/mL (0.00-0.033)
[2021-05-23 20:05] LABS: COLLECTION METHOD CLEAN CATCH
[2021-05-23 20:10] LABS: MUCOUS Present (NOT PRESENT); PH 5 (5-8); SQUAMOUS EPITHELIAL 0-2 /hpf (0-10); URINE APPEARANCE Clear (CLEAR/HAZY); URINE BACTERIA None Seen (NONE SEEN); URINE BILIRUBIN Negative (NEGATIVE); URINE BLOOD 1+ (NEGATIVE); URINE COLOR Yellow (YELLOW); URINE GLUCOSE Negative (NEGATIVE); URINE KETONE Negative (NEGATIVE); URINE LEUKOCYTE ESTERASE Negative (NEGATIVE); URINE NITRATE Negative (NEGATIVE); URINE PROTEIN(semi-quant) Negative (NEGATIVE); URINE UROBILINOGEN Negative (NEGATIVE)
[2021-05-23 20:24] LABS: TRICYCLIC ANTIDEPRESS URINE NEGATIVE
[2021-05-23 21:07] LABS: HEMOGLOBIN A1C 6.8 %
[2021-05-23 21:11] LABS: ARTERIAL BLD GAS O2 SATURATION 95.8 % (92-100); ARTERIAL BLD GAS TCO2 CT 20.1; ARTERIAL BLOOD GAS BASE EXCESS -5.7 (-2-2); ARTERIAL BLOOD GAS HCO3 19.1 meq/L (22-26); ARTERIAL BLOOD GAS PCO2 34.5 mmHg (35-45); ARTERIAL BLOOD GAS PO2 88.7 mmHg (80-100); ARTERIAL BLOOD GAS pH 7.36 (7.35-7.45)
[2021-05-23 21:15] LABS: ALCOHOL(ethanol),MEDICAL < 10 mg/dL (0-10); MAGNESIUM 1.4 mg/dL (1.6-2.6); SALICYLATE < 5.0 mg/dL (15.0-30.0)
[2021-05-23 21:44] LABS: LACTIC ACID 2.1 mmol/L (0.5-2.0)
[2021-05-23 23:30] VITALS: BP 140/79; PULSE 96; TEMP 97.9
--- NOTE | 2021-05-24 01:15 | NUR ---
Pt woke up attempted to get out of bed alone. Alarm went off. When asking pt where she was going or what she needed would swing at staff and say please. Attempt to orientate to situation, not interested in listening to reason. Edwina called for orders as pt was pushing at staff to get out of her way. Atempt to give po med to help her calm would not cooperate, called allsion back halidol 1mg IM given. Toileted offered drink and back to bed, alarm set. Pt is calm as of now. Monitoring.
--- NOTE | 2021-05-24 01:55 | NUR ---
PT ALERT AND ATTEMPTING TO GET UP AGAIN. PARTNER MARKETING MANAGER AT BEDSIDE. PT IS DRINKING WATER AND TRYING SOME JELLO.
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
[2021-05-24 04:18] VITALS: BP 198/72; PULSE 84; TEMP 98
[2021-05-24 06:58] LABS: BASO # 0.1 K/mm3 (0.0-0.2); BASO % 0.4 % (0.0-2.0); EOS % 0.1 % (0-4.0); GRAN # 11.8 K/mm3 (1.4-6.5); LYMPH # 1.6 K/mm3 (1.2-3.4); LYMPH % 11.3 % (20.0-51.0); MEAN CELL VOLUME 69 fl (80.0-100.0); MEAN CORPUSCULAR HGB CONC 29 g/dl (33.0-37.0); MEAN PLATELET VOLUME 8.9 fl (7.4-10.4); MONO # 0.5 K/mm3 (0.1-0.6); MONO % 3.7 % (1.7-9.3); PLATELET COUNT 424 K/mm3 (130-400); RED BLOOD COUNT 4.13 M/mm3 (4.10-5.30); REDCELL DISTRIBUTION WIDTH-CV 19.3 % (11.5-14.5)
[2021-05-24 07:08] LABS: HEMATOCRIT 28.6 % (37.0-47.0); HEMOGLOBIN 8.4 g/dl (12.5-16.0); MEAN CORPUSCULAR HEMOGLOBIN 20 pg (27.0-31.0)
[2021-05-24 07:09] LABS: CALCIUM 8.9 mg/dL (8.4-10.2); CREATININE, serum 0.81 mg/dL (0.57-1.11); POTASSIUM 4.5 mmol/L (3.5-4.5)
[2021-05-24 07:45] VITALS: BP 128/71; PULSE 87; TEMP 98.1
--- NOTE | 2021-05-24 07:53 | NUR ---
Patient awake, alert to name, confused on location and . Nursing staff orienting patient as needed. Denies pain and discomfort, but has audible moans. Patient has set of the bed alarm several times, needing to use the bathroom. VSS. IV CDI. Seizure precautions in place. Call light within reach. Bed alarm off. Nurse has talked to the twice since coming on shioft.
[2021-05-24] MEDS ORDERED: ROXICODONE 55 MG/TAB PO (08:28)
[2021-05-24 11:05] VITALS: BP 119/60; PULSE 80; TEMP 98.6
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
[2021-05-24] MEDS ORDERED: NORVASC 5MG5 MG/TAB PO (13:41)
[2021-05-24 14:57] VITALS: BP 127/70; PULSE 83; TEMP 97.8
--- NOTE | 2021-05-24 17:26 | NUR ---
Patient alert and intermittently oriented, but mostly confused. VSS. IV CDI. Has been getting up several times throughout the shift to void. Steady on feet. Reports pain in pelvis/hips, scheduled pain medication given. at the bedside several times throughout the shift and has called several times as well. Thinks the patient is ready to go home. Nursing staff continuing to explain that the patient still has diagnostic test scheduled. Patient does not use the call light for assistance. No further needs expressed. Call light within reach. Bed alarm on and door left open
--- NOTE | 2021-05-24 20:01 | NUR ---
NURSE AND DOCTOR IN DISCUSSING CARE. SAID WASN'T A GOOD TIME FOR A TREATMENT. PATIENT IS STABLE ON ROOM AIR. WILL CONTINUE TO MONITOR
[2021-05-24 20:26] VITALS: BP 112/53; PULSE 79; TEMP 98.1
--- NOTE | 2021-05-24 21:49 | NUR ---
ALERT TO SELF AND HOSPITAL. DR CABRERA AT BEDSIDE FOR EVAL. WILL CONSULT ORTHOPEDIC DR AND PSYCH CONSULT IN AM. NO OTHER NEW ORDERS. PT MORE CLEAR AT TIME TONIGHT. WILL GET UP IMPULSIVLY BUT USUALLY RELATED TO NEEDING TO VOID. TAKES PILLS OKAY. IV FLUSHED. CALL LIGHT WI REACH. BED ALARM REMAINS ON FOR SAFTEY.
[2021-05-25 00:47] VITALS: BP 128/79; PULSE 78; TEMP 98.2
[2021-05-25 01:23] VITALS: BP 138/67; PULSE 82; TEMP 98
--- NOTE | 2021-05-25 02:40 | NUR ---
PATIENT FINALLY RESTING AFTER A LONG NIGHT. NURSE AND I DECIDED SHE DIDN'T NEED THE TREATMENT AND WOULD BE OK WITH PRN. WILL DISCUSS ON ROUNDS TOMORROW-
--- NOTE | 2021-05-25 05:24 | NUR ---
UP TO VOID EVERY HOUR OVERNIGHT. STILL CONFUSED AND DISORIENTED. NEURO INTACT. NO C/O RT HIP PAIN. ASST TO BR STAND BY. BED ALARMS ON.
--- NOTE | 2021-05-25 06:33 | NUR ---
ORTHO CONSULTED, EEG TO BE DONE THIS AM AT 07 AND WILL PASS ONTO DAY SHIFT RN TO CONSULT PSYCH. SETTING UP IN BED EATING ICE CREAM THIS AM.
[2021-05-25 06:43] LABS: BASO % 0.4 % (0.0-2.0); EOS # 0.1 K/mm3 (0.0-0.7); EOS % 0.4 % (0-4.0); GRAN # 9.1 K/mm3 (1.4-6.5); GRAN % 79.7 % (42.2-75.2); LYMPH # 1.6 K/mm3 (1.2-3.4); LYMPH % 13.7 % (20.0-51.0); MEAN CELL VOLUME 72 fl (80.0-100.0); MEAN CORPUSCULAR HGB CONC 28 g/dl (33.0-37.0); MEAN PLATELET VOLUME 9.1 fl (7.4-10.4); MONO # 0.6 K/mm3 (0.1-0.6); MONO % 5.3 % (1.7-9.3); PLATELET COUNT 419 K/mm3 (130-400); RED BLOOD COUNT 3.83 M/mm3 (4.10-5.30); REDCELL DISTRIBUTION WIDTH-CV 19.7 % (11.5-14.5)
[2021-05-25 06:51] LABS: HEMATOCRIT 27.6 % (37.0-47.0); HEMOGLOBIN 7.8 g/dl (12.5-16.0); MEAN CORPUSCULAR HEMOGLOBIN 20 pg (27.0-31.0)
[2021-05-25 06:58] LABS: CALCIUM 9.2 mg/dL (8.4-10.2); CREATININE, serum 0.76 mg/dL (0.57-1.11); POTASSIUM 3.8 mmol/L (3.5-4.5)
[2021-05-25 08:00] VITALS: BP 130/70; PULSE 87; TEMP 97.4
--- NOTE | 2021-05-25 08:50 | NUR ---
Patient taken for MRI via wheelchair.
[2021-05-25 12:13] VITALS: BP 139/89; PULSE 86; TEMP 98.3
--- NOTE | 2021-05-25 15:29 | NUR ---
second worker met with patient to discuss discharge plan. Even with the confusion, the patient was able to answer some questions accurately. Patient reports that she lives in [place] with her Octavio but was unable to tell me Octavio's phone number. Patient reports that she is independent with her activities of daily living. When asked if she utilizes any DME to assist with mobility such as a cane or walker, the patient appears to have a hard time tracking what i am asking stating "i think at the barn". Patient reports that she does not use oxygen. She states her PCP is Dr. Lagos and that she gets her medications from Dr. Lagos. When asked if Dr. Lagos sends her medications anywhere such as [facility] or [facility], the patient laughs and say's "no". When asked if the patient has a DPOA-HC, the patient say's "me and Octavio" and reports that she has no children. Octavio contacted and reports that he and the patient live in [facility] in "a [place] ourselves". Octavio reports that the patient is independent with her ADL's up until the past few day's. He reports that the patient uses a cane all the time and a walker prn. States the patient does not have any O2 needs. Octavio reports that the patient's PCP is Dr. Lagos and that she receives her medications through [facility]. Octavio states that they do not have a DPOA-HC stating " i didn't think a and would need one and that we were each others". Educated Octavio on what a DPOA-HC is and that he would legally be her agent since they are . Octavio reports that the patient has an adult daughter named Kavita but he couldn't remember Kavita's last name and couldn't look up her number in fear of hanging up on me. Rn asked to get Kavita's number when Octavio visits. consulted the patient after my visit. Post consult she is recommending SNF for the patient. suspects the patient has some dementia but is hard to diagnose factoring the pain medications. Both Dr. Russell and I are in agreement that the patient cannot safely return home. Discharge plan: PT/OT monitoring the patient but most likely SNF or [place]
[2021-05-25 17:55] VITALS: BP 111/56; PULSE 76; TEMP 98.3
--- NOTE | 2021-05-25 18:00 | NUR ---
Patient has had a difficult day. Alert but not orientated. Scheduled medications given. Shift assessments preformed. Agitation has increased as shift progressed, Derek called for medication to help with agitation, serotresl ordered. Patient refused to take medication. print finishing worker consulted for placement. Patient is currently lying in bed. Respirations even and unlaborded. VSS. Call light in reach. Fall precautions in place.
[2021-05-25 19:31] VITALS: BP 143/95; PULSE 89
--- NOTE | 2021-05-25 23:23 | NUR ---
THIS RN WAS ONLY ABLE TO PERFORM LIMITED ASSESSMENT DUE TO EXTREME AGITATION IN PT. SHE STATED THAT EVERYONE HERE WAS VERY MEAN AND LOOKED TO BE IN PAIN. PT REFUSED MEDICATION AT THIS TIME, SHE WAS EXTREMELY FIDGETY. PT WAS SITTING ON BENCH IN ROOM TRYING TO AVOID CONVERSATION AND ANSWERING QUESTIONS. WHISKEY PROOF READER CAME IN AND WAS ABLE TO DISTRACT PATIENT AND GET PT CALMED DOWN INTO BED. CHARGE NURSE CALLED [facility] TO GET ONE TIME DOSE OF HALDOL TO REDUCE AGITATION. PT ALLOWED MEDICATION TO GO INTO IV WITHOUT A FIGHT. PT WOKE UP 2 HOURS LATER IN A MORE PLEASANT MOOD BUT STILL VERY CONFUSED AND IMPULSIVE. THIS RN HELPED PT TO RESTROOM AND THEN TO RECLINER. PT DID NOT KNOW WHERE SHE WAS, WHEN IT WAS AND WAS RESPONDING INAPPROPRIATELY TO QUESTIONS. PT ASKED ABOUT HER DOG AND IF DOG WAS RUNNING OUTSIDE. REORIENTATED PT TO PLACE, TIME AND WHY SHE WAS ADMITTED. PT VERBALIZED UNDERSTANDING, BUT THEN REPEATED QUESTION ABOUT DOG.
[2021-05-26 05:03] VITALS: BP 145/68; PULSE 92; TEMP 98.1
--- NOTE | 2021-05-26 06:30 | NUR ---
PT HAS BEEN DRINKING AN EXCESSIVE AMOUNT OF WATER, SINCE THIS RN HAS CHARTED 2000ML, AND THE AIDE HAS CHARTED 1000ML. SHE HAS ALSO BEEN URINATING ALOT AND HAS HAD OVER 1300 OUT IN THE 3 HOURS. WILL CONTINUE TO MONITOR, AND DISCUSS WITH PROVIDER ON ROUNDING.
[2021-05-26 06:52] LABS: BASO % 0.4 % (0.0-2.0); EOS % 0.3 % (0-4.0); GRAN # 8.2 K/mm3 (1.4-6.5); GRAN % 79.8 % (42.2-75.2); LYMPH # 1.5 K/mm3 (1.2-3.4); LYMPH % 14.1 % (20.0-51.0); MEAN CELL VOLUME 73 fl (80.0-100.0); MEAN CORPUSCULAR HGB CONC 28 g/dl (33.0-37.0); MEAN PLATELET VOLUME 9.1 fl (7.4-10.4); MONO # 0.4 K/mm3 (0.1-0.6); MONO % 4.2 % (1.7-9.3); PLATELET COUNT 485 K/mm3 (130-400); REDCELL DISTRIBUTION WIDTH-CV 20.3 % (11.5-14.5)
[2021-05-26 07:11] LABS: CALCIUM 9.4 mg/dL (8.4-10.2); CREATININE, serum 0.84 mg/dL (0.57-1.11); POTASSIUM 3.8 mmol/L (3.5-4.5)
[2021-05-26 07:48] LABS: HEMATOCRIT 29.9 % (37.0-47.0); HEMOGLOBIN 8.5 g/dl (12.5-16.0); MEAN CORPUSCULAR HEMOGLOBIN 21 pg (27.0-31.0)
[2021-05-26 08:20] VITALS: BP 133/83; PULSE 81; TEMP 97.4
--- NOTE | 2021-05-26 10:25 | NUR ---
DISCUSSED WITH THAT WE WOULD LIKE TO TALK WITH NATALIE'S CHILDREN REGUARDING HER HEALTH. DAVIN WAS AMMENABLE AND GAVE THIS RN THE CHILDREN'S PHONE NUMBER. THERE IS CONCERN WITH THE CONFUSED NATURE OF BOTH PATIENT AND . DISCUSSED THIS WITH THE FAMILY'S NEIGHBOR ANNMARIE WHO AGREES THAT HE IS CONCERNED FOR THEM TO RETURN HOME. DISCUSSED WITH RONEL WITH SOCIAL WORK AND WILL GIVE HER THE FAMILY'S NUMBERS.
[2021-05-26 11:40] VITALS: BP 140/71; PULSE 75; TEMP 97.7
--- NOTE | 2021-05-26 14:57 | NUR ---
APS report filed for both the patient and the patient's due to high concerns of confusion and possible self neglect. Kristan report number:[id number] Félix report number: [id number]
[2021-05-26 14:59] LABS: CSF MONONUCLEAR 45 % (70-100); CSF POLYMORPHONUCLEAR 56 % (0-6); CSF RBC 8000 /mm3 (0-0)
[2021-05-26 15:06] LABS: CSF APPEARANCE BLOODY; CSF COLOR PINK
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
[2021-05-26 16:43] VITALS: BP 161/94; PULSE 84; TEMP 97.7
--- NOTE | 2021-05-26 20:00 | NUR ---
PATIENT IS SITTING AT THE EDGE OF THE BED.pATIENT IS TRYING TO GET UP OF BED.PATIENT IS CONFUSED.PATIENT TOOK HER PILLS WHOLE WITH NO TROUBLE.PATIENT IS A STANDBY ASSIST TO THE BATHROOM.PATIENT DENIES PAIN.NO OTHER NEEDS AT THIS TIME.
[2021-05-26 20:10] VITALS: BP 157/91; PULSE 89; TEMP 98.3
--- NOTE | 2021-05-26 23:45 | NUR ---
PATIENT WAS AGITATED NIGHT PROVIDER INFORMED ORDERED HALDOL IV SAME GIVEN.
[2021-05-27 00:02] VITALS: BP 152/68; PULSE 103; TEMP 98.3
[2021-05-27 03:28] VITALS: BP 139/93; PULSE 82; TEMP 978
--- NOTE | 2021-05-27 04:40 | NUR ---
PATIENT IS CONFUSED TRYING TO GET OUT OF BED.PATIENT IS NOT ABLE TO USE THE CALL LIGHT.PATIENT HAS HAD TWO DOSES OF HALDOL.SAFTEY MEASURES IN PLACE.NO OTHER NEEDS AT THIS TIME.
[2021-05-27 06:48] LABS: BASO % 0.3 % (0.0-2.0); EOS % 0.2 % (0-4.0); GRAN # 9.4 K/mm3 (1.4-6.5); GRAN % 80.1 % (42.2-75.2); LYMPH # 1.5 K/mm3 (1.2-3.4); LYMPH % 12.5 % (20.0-51.0); MEAN CELL VOLUME 73 fl (80.0-100.0); MEAN CORPUSCULAR HGB CONC 29 g/dl (33.0-37.0); MEAN PLATELET VOLUME 8.9 fl (7.4-10.4); MONO # 0.8 K/mm3 (0.1-0.6); MONO % 6.5 % (1.7-9.3); PLATELET COUNT 489 K/mm3 (130-400); REDCELL DISTRIBUTION WIDTH-CV 20.7 % (11.5-14.5)
[2021-05-27 06:55] LABS: HEMATOCRIT 29.8 % (37.0-47.0); HEMOGLOBIN 8.5 g/dl (12.5-16.0); MEAN CORPUSCULAR HEMOGLOBIN 21 pg (27.0-31.0)
[2021-05-27 07:02] LABS: CALCIUM 9.2 mg/dL (8.4-10.2); CREATININE, serum 0.88 mg/dL (0.57-1.11); POTASSIUM 3.4 mmol/L (3.5-4.5)
--- NOTE | 2021-05-27 08:28 | NUR ---
Yari, at [facility], reports that they have declined the patient.
[2021-05-27 11:40] VITALS: BP 117/64; PULSE 84; TEMP 98.8
[2021-05-27 14:05] VITALS: BP 109/63; PULSE 95; TEMP 98.7
--- NOTE | 2021-05-27 14:15 | NUR ---
The patient had a fall today, she slid out of her chair. Family was called. Provider was notified. No other concerns.
--- NOTE | 2021-05-27 16:51 | NUR ---
Shay, at [facility], reports that at this time, they do not feel like the can meet the patient's needs, but they would request additional updates /Tuesday to see if the patient has had any changes and is not having any behaviors.
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
--- NOTE | 2021-05-27 19:37 | NUR ---
REPORT RECEIVED FROM KAREEM JIMENEZ. PT LAYING IN BED WITH DINNER TRAY IN FRONT OF HER. PT HAD TELE BOX ON TRAY AND ASKED HOW TO USE IT. THIS RN ORIENTATED PT TO USE OF TELE BOX AND PUT BACK IN PATIENT GOWN. PT CURRENTLY IS DENYING ANXIETY, NO SIGNS OF AGITATION. PT BED ALARM ON, SIDE RAILS UP, PT ORIENTATED TO PLACE. THIS RN ASKED IF PT HAD TRIED DINNER, SHE STATED SHE ATE LAST NIGHT, ORIENTATED THAT IT IS A NEW NIGHT AND TO TRY TO EAT SOME FOOD. PT SAID SHE WILL TRY. CALL LIGHT IN REACH, TOLD TO USE CALL LIGHT FOR ANY NEEDS. WILL KEEP SAFETY MEASURES IN PLACE. NO OTHER NEEDS AT THIS TIME.
--- NOTE | 2021-05-27 19:52 | NUR ---
PT TOLD RT THAT SHE NEEDED TO GO TO THE RESTROOM. THIS RN WENT IN AND ASSISTED PT TO RESTROOM. THIS RN ASKED PT FOR FULL NAME, DATE OF , CURRENT LOCATION AND THE YEAR. PT RESPONDED APPROPRIATELY EVERY TIME. PT DENIES ANY INCREASED OR DIFFERENT PAIN, COOPERATIVE AND VERBALIZED UNDERSTANDING.
[2021-05-27 20:15] VITALS: BP 122/74; PULSE 81; TEMP 97.8
--- NOTE | 2021-05-27 21:37 | NUR ---
PATIENT ASSESSMENT COMPLETED. PT IS FULLY AWARE, ABLE TO RESPOND APPROPRIATELY TO FULL NAME, DATE OF , CURRENT LOCATION AND YEAR. PATIENT STATED SHE CANNOT SEE REAL WELL. PT ORIENTATED TO CALL LIGHT. PT VERBALIZED UNDERSTANDING OF USE OF CALL LIGHT AND USING IF NEED TO GET UP FOR THE BATHROOM OR ANY OTHER NEEDS. PT WATER REFILLED WITH ROOM TEMPERATURE WATER, PT STATED THAT IF IT IS ICE WATER, SHE DRINKS TOO MUCH OF IT. PT ASKED ABOUT WHAT SHE IS SUPPOSED TO BE DOING. THIS RN TOLD PT THAT SHE IS SUPPOSED TO BE RESTING AND TRYING TO GET MORE SLEEP DUE TO INCREASED CONFUSION THESE LAST FEW DAYS. PT STATED THAT SHE HAS BEEN CONFUSED LATELY. PT TOOK ALL MEDICATIONS AFTER ASKING WHAT SHE IS TAKING AND WHAT THEY ARE FOR. PT IS PLEASANT AND COOPERATIVE. CALL LIGHT IS IN REACH, BED IN LOWEST POSITION, WHEELS LOCKED. THIS RN CHECKED TELE LEADS, AND REPLACED TELE BATTERIES TO GET PATIENT BACK ON MONITOR.
[2021-05-28] VITALS (7 sets, daily range): BP systolic 108–134; BP diastolic 60–94; PULSE 69–92; TEMP 97.7–98.2
--- NOTE | 2021-05-28 05:28 | NUR ---
PT HAD AN UNEVENTFUL NIGHT. PT TOOK MEDICATIONS LAST NIGHT, AND SLEPT WHOLE NIGHT. PT DID NOT GET UP CONFUSED AT ALL. CALL LIGHT IN REACH, TELE STILL ON PATIENT. NO OTHER NEEDS AT THIS TIME.
[2021-05-28 07:17] LABS: CALCIUM 8.3 mg/dL (8.4-10.2); CREATININE, serum 0.87 mg/dL (0.57-1.11); MAGNESIUM 2.4 mg/dL (1.6-2.6); POTASSIUM 3.4 mmol/L (3.5-4.5)
--- NOTE | 2021-05-28 10:50 | NUR ---
Scheduled medications given. Shift assessment performed. Patient denies any pain, discomfort, or SOA at this time. Wheezes noted on bilateral upper lobes. Patient currently resting in bed. Respirations even and unlabored. Call light in reach. Fall precautions in place. Seizure precautions in place.
--- NOTE | 2021-05-28 18:47 | NUR ---
Patient has had an uneventful day. Patient is currently resting in bed. Respirations even and unlabored. VSS. Denies any pain, discomfort, soa, or any further needs at this time. Call light in reach. Fall precautions in place. Seizure precautions in place.
--- NOTE | 2021-05-28 20:45 | NUR ---
PATIENT IS RESTING IN BED.PATIENT IS CONFUSED.PATIENT DENIES PAIN.PATIENT TOOK HER PILLS WELL.PATIENT WAS OFFERED ENSURE DRINK.PATIENT SAFETY IN PLACE.NO OTHER NEEDS A THIS TIME.
[2021-05-29 04:05] VITALS: BP 130/81; PULSE 82; TEMP 97.4
--- NOTE | 2021-05-29 05:35 | NUR ---
PATIENT HAS BEEN CONFUSED THE WHOLE NIGHT.PATIENT WAS TRYING GETTING OUT OF BED WITH NO HELP.SAFETY MEASURES IN PLACE.NO OTHER NEEDS AT THIS PLACE.
--- NOTE | 2021-05-29 06:59 | NUR ---
Pt. progressing w/ plan of care. Pt. went to the bathroom w/ assistance and is now OOB in the chair waiting for breakfast. Chair alarm on, call light and belongings in reach.
[2021-05-29 07:37] VITALS: BP 147/86; PULSE 86; TEMP 98
--- NOTE | 2021-05-29 08:02 | NUR ---
AM meds given and assessment complete. Scheduled ibuprofen given, pt. reports pain behind knees and lower back. Pt. voided and is now back in the chair w/ chair alarm on and call light in reach. Needs addressed.
[2021-05-29 12:03] VITALS: BP 130/73; PULSE 85; TEMP 98.1
[2021-05-29 15:39] VITALS: BP 154/86; PULSE 78; TEMP 97.4
--- NOTE | 2021-05-29 15:56 | NUR ---
Neuropsychology Service Director met with patient, patient's , and patient's step-daughter Zenaida (ph#[phone]) to discuss discharge planning. Patient is agreeable to SNF and requests a referral be sent to [facility]. MELISSA contacted [facility] and was advised they do not have any skilled beds available. MELISSA updated Zenaida who expressed understanding. Zenaida advised she knows there were concerns for patient's at home, however she feels that he has been doing well independently. Zenaida is from [place] and plans to return there tomorrow. MELISSA faxed clinical updates to [facility], [facility], and [facility]. MELISSA was contacted by Kendra at [facility] who advised they do not have female beds available at this time.
[2021-05-29 20:45] VITALS: BP 127/78; PULSE 74; TEMP 98.2
--- NOTE | 2021-05-30 04:28 | NUR ---
Patient with aggitation this am, can be uncooperative at times, redirection noted, ambulated in hallway with staff until redirection possible, no s/s of hypo/hyper glycemia noted, neuro checks q 4 hours, c/o pain to R hip- ice packs in use, fall precautions in use, call cortez w/i reach, bed alarm in use.
[2021-05-30 08:11] VITALS: BP 102/69; PULSE 84; TEMP 97.4
--- NOTE | 2021-05-30 12:02 | NUR ---
Pt. progressing w/ plan of care. Pt.'s IV to R forearm was leaking this AM, IV removed, site c/d/i. JONA Kevin and Dr. Culver notified, Dr. Culver reports it is OK pt. does not have an IV and her medications can be switched to PO. Pt. resting in bed w/ eyes closed at this time. Bed alarm on, call light in reach.
[2021-05-30 12:50] VITALS: BP 126/80; PULSE 87; TEMP 97.6
[2021-05-30 16:28] VITALS: BP 123/66; PULSE 80; TEMP 97.9
[2021-05-30 20:06] VITALS: BP 115/63; PULSE 79; TEMP 97.8
[2021-05-31 04:47] VITALS: BP 111/89; PULSE 83; TEMP 97.2
--- NOTE | 2021-05-31 07:02 | NUR ---
Patient asleep in bed at this time. Respirations even and unlabored. No s/s of any pain or discomfort. Call light in reach. Fall precautions in place.
[2021-05-31 07:54] VITALS: BP 111/67; PULSE 84; TEMP 98
--- NOTE | 2021-05-31 08:47 | NUR ---
Scheduled medications given. Shift assessment performed. Patient c/o aching right hip pain rated a 7/10. Scheduled motrin given. Lidocaine patch applied. Patient A&O. VSS. Patient is currently lying in bed resting. Denies any further pain, discomfort, SOA, or needs at this time. Call light in reach. Fall percautions in place. Seizure precautions in place. Protonix and Solucortef not given due no IV access.
[2021-05-31 11:43] VITALS: BP 109/69; PULSE 86; TEMP 97.8
[2021-05-31 16:24] VITALS: BP 133/81; PULSE 76; TEMP 98.5
--- NOTE | 2021-05-31 18:43 | NUR ---
Patient has had an uneventful day. Patient given scheduled motrin and PRN tylenol this shift for right hip pain. Patient is currenlty resting in bed. Respirations are even and unlabored. No s/s of pain or discomfort. VSS. Call light in reach. Patient A&O. Fall percautions in place.
[2021-05-31 19:13] VITALS: BP 112/53; PULSE 65; TEMP 98.3
[2021-05-31 23:17] VITALS: BP 111/73; PULSE 80; TEMP 98.3
[2021-06-01 03:31] VITALS: BP 117/68; PULSE 81; TEMP 97.4
--- NOTE | 2021-06-01 06:22 | NUR ---
Chen with less confusion, using call diego lewis, oriented x 3, appropriate conversations ongoing throughout evening, call placed to Silke Fischer to notify.
--- NOTE | 2021-06-01 07:00 | NUR ---
PT SITTING UP AT BEDSIDE TO EAT BREAKFAST. PT HAS SOME COMPLAINTS OF PAIN IN THE HIP/BACK. NO OTHER CONCERNS AT THIS TIME.
[2021-06-01 07:37] VITALS: BP 103/61; PULSE 94; TEMP 97.8
[2021-06-01 11:25] VITALS: BP 120/66; PULSE 82; TEMP 97.8
[2021-06-01] MEDS ORDERED: IBU400 MG PO (14:28)
[2021-06-01] MEDS ORDERED: PROAIR HFA0.09 MG/AC IH (14:28)
[2021-06-01] MEDS ORDERED: FERROUS SU325 MG/TAB PO (14:28)
[2021-06-01] MEDS ORDERED: SEROQUEL 2525 MG/TAB PO (14:29)
[2021-06-01] MEDS ORDERED: SEROQUEL50 MG PO (14:29)
[2021-06-01] MEDS ORDERED: TYLENOL 325MG325 MG PO (14:29)
[2021-06-01] MEDS ORDERED: MELATIN 3 MG-11 TAB PO (14:30)
[2021-06-01] MEDS ORDERED: BLUE-EMU LIDOC1 EACH TP (14:30)
[2021-06-01] MEDS ORDERED: MAG-OX 400400 MG/TAB PO (14:31)
[2021-06-01 14:44] VITALS: BP 120/66; PULSE 82; TEMP 97.8
--- NOTE | 2021-06-01 15:54 | NUR ---
The hospitalist notified MELISSA that he is ready to discharge the patient today. MELISSA notified and faxed updates to [facility] and [facility]. Clary, at [facility], reports that they are able to accept the patient, but cannot take her until tomorrow. Shay, at [facility], reports that they are able to accept the patient today. MELISSA met with the patient to update. The patient is alert and is okay with going to [facility]. She asked that SW contact her and daughter. MELISSA contacted her and daughter, Kavita, and updated them on [facility] acceptance and discharge. They were both agreeable to the plan. MELISSA then met with the patient to address a DPOA-HC. The patient verbalized that a DPOA-HC allows someone to make medical decisions for her when she cannot. She reports that she would want her to make those decisions and then have her daughter, Kavita, as an alternate. The patient verbalized that she would like to go ahead and do a DPOA-HC while here. MELISSA provided the form. MELISSA and the patient's RN, Valarie, witnessed the patient's signature. MELISSA provided the patient with the original and some copies. MELISSA placed a copy in the patient's chart and faxed a copy to Shay at [facility]. MELISSA attempted to contact the patient's son and daughter to update them about the completed DPOA-HC. MELISSA left them voicemails. The patient is to discharge today, 06/01, to [facility] for a skilled stay. Transportation was scheduled at 1530, via [facility]. MELISSA informed the patient, her , daughter, and RN of the time. They were all agreeable to the time. No additional needs at this time.
--- NOTE | 2021-06-01 16:01 | NUR ---
Trinh, Electric Train Driver at [facility] declined referral.
== END 2021-06-01 16:30 | DRG 92 ==
LOC: COL.ER 18:27 → MEDICAL 20:01
PROVIDERS: Emergency Medicine; Internal Medicine; Nurse Practitioner Family; Physician Assistant; Psychiatry & Neurology Neurology; Student in an Organized Health Care Education/Training Program; ADMIT Internal Medicine
DX: G92.8 Other toxic encephalopathy (principal); E87.1 Hypo-osmolality and hyponatremia; E27.40 Unspecified adrenocortical insufficiency; E23.0 Hypopituitarism; E87.2 Acidosis; E87.0 Hyperosmolality and hypernatremia; R65.10 Systemic inflammatory response syndrome (SIRS) of non-infectious origin without acute organ dysfunction; K21.9 Gastro-esophageal reflux disease without esophagitis; E78.00 Pure hypercholesterolemia, unspecified; E03.9 Hypothyroidism, unspecified; J44.9 Chronic obstructive pulmonary disease, unspecified; G89.29 Other chronic pain; M19.90 Unspecified osteoarthritis, unspecified site; R73.9 Hyperglycemia, unspecified; D50.9 Iron deficiency anemia, unspecified; M54.50 Low back pain, unspecified; T40.2X5A Adverse effect of other opioids, initial encounter; M46.1 Sacroiliitis, not elsewhere classified; Z79.52 Long term (current) use of systemic steroids; Z20.822 Contact with and (suspected) exposure to COVID-19
CPT/HCPCS: OP; 99232-AI; 99233-AI; 99239; A9585; C9113; G0378; J1630; J1720; J1885; J2270; J2405; J3475; J7030

== ENCOUNTER 2021-06-11 10:52 | Observation (INO) | payer MEDICARE, OTHER ==
[~2021-06-11] VITALS: Ht 162.6 cm; Wt 90.9 kg
[~2021-06-11 10:52] MED LIST changes: +BLUE-EMU LIDOC1 EACH TP; +FERROUS SU325 MG/TAB PO; +IBU400 MG PO; +MAG-OX 400400 MG/TAB PO; +NORVASC 5MG5 MG/TAB PO; +PROAIR HFA0.09 MG/AC IH; +SEROQUEL50 MG PO
[2021-06-11 12:29] LABS: BASO # 0.1 K/mm3 (0.0-0.2); BASO % 0.5 % (0.0-2.0); EOS # 0.1 K/mm3 (0.0-0.7); EOS % 0.6 % (0-4.0); GRAN # 8.4 K/mm3 (1.4-6.5); HEMATOCRIT 32.4 % (37.0-47.0); HEMOGLOBIN 9.5 g/dl (12.5-16.0); LYMPH # 1.9 K/mm3 (1.2-3.4); LYMPH % 16.6 % (20.0-51.0); MEAN CELL VOLUME 73 fl (80.0-100.0); MEAN CORPUSCULAR HEMOGLOBIN 21 pg (27.0-31.0); MEAN CORPUSCULAR HGB CONC 29 g/dl (33.0-37.0); MEAN PLATELET VOLUME 8.1 fl (7.4-10.4); MONO # 0.9 K/mm3 (0.1-0.6); MONO % 7.9 % (1.7-9.3); PLATELET COUNT 419 K/mm3 (130-400); RED BLOOD COUNT 4.43 M/mm3 (4.10-5.30); REDCELL DISTRIBUTION WIDTH-CV 23.6 % (11.5-14.5)
[2021-06-11 12:49] LABS: ALBUMIN 3.5 gm/dL (3.4-4.8); BILIRUBIN,TOTAL 0.5 mg/dL (0.2-1.2); CALCIUM 8.8 mg/dL (8.4-10.2); CREATININE, serum 0.91 mg/dL (0.57-1.11); POTASSIUM 4.1 mmol/L (3.5-4.5); TOTAL PROTEIN 6.7 gm/dL (6.2-8.1)
[2021-06-11 12:59] LABS: COLLECTION METHOD CATHETER
[2021-06-11 13:07] LABS: MUCOUS Present (NOT PRESENT); PH 7 (5-8); SQUAMOUS EPITHELIAL None Seen /hpf (0-10); URINE APPEARANCE Hazy (CLEAR/HAZY); URINE BACTERIA None Seen (NONE SEEN); URINE BILIRUBIN Negative (NEGATIVE); URINE BLOOD Negative (NEGATIVE); URINE COLOR Yellow (YELLOW); URINE GLUCOSE Negative (NEGATIVE); URINE KETONE Negative (NEGATIVE); URINE LEUKOCYTE ESTERASE Negative (NEGATIVE); URINE NITRATE Negative (NEGATIVE); URINE PROTEIN(semi-quant) Negative (NEGATIVE); URINE UROBILINOGEN Negative (NEGATIVE)
[2021-06-11] MEDS ORDERED: CEPHALEXIN500 M1 PO (15:02)
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
[2021-06-12 15:38] LABS: BASO % 0.2 % (0.0-2.0); EOS # 0.3 K/mm3 (0.0-0.7); GRAN # 5.7 K/mm3 (1.4-6.5); GRAN % 68.3 % (42.2-75.2); LYMPH # 1.7 K/mm3 (1.2-3.4); LYMPH % 20.7 % (20.0-51.0); MEAN CELL VOLUME 75 fl (80.0-100.0); MEAN CORPUSCULAR HGB CONC 29 g/dl (33.0-37.0); MEAN PLATELET VOLUME 8.4 fl (7.4-10.4); MONO # 0.6 K/mm3 (0.1-0.6); MONO % 7.4 % (1.7-9.3); PLATELET COUNT 393 K/mm3 (130-400); RED BLOOD COUNT 4.43 M/mm3 (4.10-5.30); REDCELL DISTRIBUTION WIDTH-CV 24.1 % (11.5-14.5)
[2021-06-12 15:44] LABS: HEMATOCRIT 33.3 % (37.0-47.0); HEMOGLOBIN 9.5 g/dl (12.5-16.0); MEAN CORPUSCULAR HEMOGLOBIN 21 pg (27.0-31.0)
[2021-06-12 15:52] LABS: CALCIUM 8.4 mg/dL (8.4-10.2); CREATININE, serum 0.91 mg/dL (0.57-1.11); POTASSIUM 3.7 mmol/L (3.5-4.5)
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
[2021-06-13] VITALS: BP 96/83; PULSE 93; TEMP 98.4
[2021-06-13 04:16] VITALS: BP 111/65; PULSE 87; TEMP 98.7
[2021-06-13 08:06] VITALS: BP 138/84; PULSE 87; TEMP 98.5
--- NOTE | 2021-06-13 08:31 | NUR ---
PT DISCHARGING. PT DAUGHTER AT BEDSIDE, HEALTH SUMMARY AND EDUCATION GIVEN TO BEST OF ABILITY. PT ASSESSMENT AND VITAL SIGNS COMPLETED BEFORE DISCHARGE. PT AM MEDICATIONS PASSED BEFORE DISCHARGE. PT TO BE WHEELED OUT BY [employer] [employer] EM[employer].
--- NOTE | 2021-06-13 08:33 | NUR ---
PT ALERT, CONFUSED IN CONVERSATION. PT BASES DIMINISHED BILATERALLY, CLEAR UPPER LOBES BIALTERALLY. PT REPORTS PAIN, 8.5 IN LOWER BACK, MANAGED WITH PRN MEDICATIONS AND LIDOCAINE PATCH PER ORDERS. PT HAS 1+ PULSES NOTED IN DORSALIS PEDIS AND POSTERIOR TIBIAL PULSES BILATERALLY. CAP REFILL <3S. PT HAS ACTIVE BOWEL SOUNDS, SOFT, NON-TENDER. PT AHS BILATERAL LOWER EXTREMITY EDEMA 1+ PITTING. PT DAUGHTER AT BEDSIDE.
== END 2021-06-13 08:38 | disposition home or self-care (01) ==
LOC: COL.ER 10:52 → MEDICAL 06-12 11:07
PROVIDERS: Emergency Medicine; ADMIT Internal Medicine
DX: G89.29 Other chronic pain (principal); M54.50 Low back pain, unspecified; K76.0 Fatty (change of) liver, not elsewhere classified; E78.5 Hyperlipidemia, unspecified; E23.0 Hypopituitarism; E87.0 Hyperosmolality and hypernatremia; E87.6 Hypokalemia; E83.39 Other disorders of phosphorus metabolism; J44.9 Chronic obstructive pulmonary disease, unspecified; D64.9 Anemia, unspecified; K21.9 Gastro-esophageal reflux disease without esophagitis; M19.90 Unspecified osteoarthritis, unspecified site; M25.559 Pain in unspecified hip; G93.40 Encephalopathy, unspecified; Z79.890 Hormone replacement therapy; Z85.841 Personal history of malignant neoplasm of brain; Z79.899 Other long term (current) drug therapy; Z87.891 Personal history of nicotine dependence; Z20.822 Contact with and (suspected) exposure to COVID-19
CPT/HCPCS: G0378; J1885; J3010; Q9967

== ENCOUNTER 2021-07-22 18:02 | Inpatient (IN) | payer MEDICARE, OTHER ==
[~2021-07-22] VITALS: Ht 162.6 cm; Wt 113.6 kg
[~2021-07-22 18:02] MED LIST changes: +CEPHALEXIN500 M1 PO
[2021-07-22 18:36] LABS: BASO # 0.1 K/mm3 (0.0-0.2); BASO % 0.7 % (0.0-2.0); EOS # 0.2 K/mm3 (0.0-0.7); EOS % 1.6 % (0.0-4.0); GRAN # 6.4 K/mm3 (1.4-6.5); GRAN % 60.4 % (42.2-75.2); HEMATOCRIT 38.3 % (37.0-47.0); HEMOGLOBIN 11.3 g/dl (12.5-16.0); LYMPH # 2.5 K/mm3 (1.2-3.4); LYMPH % 23.6 % (20.0-51.0); MEAN CELL VOLUME 75 fl (80.0-100.0); MEAN CORPUSCULAR HEMOGLOBIN 22 pg (27-31); MEAN CORPUSCULAR HGB CONC 30 g/dl (33.0-37.0); MEAN PLATELET VOLUME 8.9 fl (7.4-10.4); MONO # 1.3 K/mm3 (0.1-0.6); MONO % 12.7 % (1.7-9.3); PLATELET COUNT 436 K/mm3 (130-400); RED BLOOD COUNT 5.13 M/mm3 (4.10-5.30); REDCELL DISTRIBUTION WIDTH-CV 21.4 % (11.5-14.5)
[2021-07-22 18:56] LABS: ALANINE AMINOTRANSFERASE 11 U/L (0-55); ALBUMIN 3.2 gm/dL (3.4-4.8); ALKALINE PHOSPHATASE 90 U/L (40-150); ANION GAP 13 mmol/L (7-16); AST,SGOT 16 U/L (5-34); BILIRUBIN,TOTAL 0.7 mg/dL (0.2-1.2); BLOOD UREA NITROGEN 9 mg/dL (10-20); C-REACTIVE PROTEIN 17.43 mg/dL (0.00-0.50); CALCIUM 9.2 mg/dL (8.4-10.2); CARBON DIOXIDE 19 mmol/L (23-31); CHLORIDE 105 mmol/L (98-107); CREATININE, serum 1.44 mg/dL (0.57-1.11); GLUCOSE 133 mg/dL (70-99); LIPASE < 10 U/L (8-78); POTASSIUM 3.6 mmol/L (3.5-4.5); SODIUM 137 mmol/L (136-145); TOTAL PROTEIN 7.2 gm/dL (6.2-8.1)
[2021-07-22 19:00] LABS: COLLECTION METHOD CATHETER
[2021-07-22 19:03] LABS: TROPONIN-I < 0.010 ng/mL (0.00-0.033)
[2021-07-22 19:06] LABS: PH 6 (5-8); SQUAMOUS EPITHELIAL 0-2 /hpf (0-10); URINE APPEARANCE Clear (CLEAR/HAZY); URINE BACTERIA Rare /hpf (NONE SEEN); URINE BILIRUBIN Negative (NEGATIVE); URINE BLOOD 2+ (NEGATIVE); URINE COLOR Yellow (YELLOW); URINE GLUCOSE Negative (NEGATIVE); URINE KETONE Negative (NEGATIVE); URINE LEUKOCYTE ESTERASE Negative (NEGATIVE); URINE NITRATE Negative (NEGATIVE); URINE PROTEIN(semi-quant) Negative (NEGATIVE); URINE RBC 0-2 /hpf (0-2); URINE UROBILINOGEN Negative (NEGATIVE)
[2021-07-22] MEDS ORDERED: FENTANYL 12MCG TD (19:52)
[2021-07-22] MEDS ORDERED: PROVIGIL200 MG PO (19:53)
[2021-07-22] MEDS ORDERED: NORVASC 5MG5 MG/TAB PO (19:54)
[2021-07-22] MEDS ORDERED: TYLENOL 325MG325 MG PO (21:14)
[2021-07-22] MEDS ORDERED: MOTRIN 400400 MG/TAB PO (21:21)
[2021-07-22] MEDS ORDERED: ROXICODONE 55 MG/TAB PO (21:28)
[2021-07-22 22:22] LABS: MAGNESIUM 2.1 mg/dL (1.6-2.6)
[2021-07-22 22:44] LABS: TSH w REFLEX 0.005 uIU/mL (0.350-4.940)
[2021-07-23 09:03] LABS: BASO # 0.1 K/mm3 (0.0-0.2); BASO % 0.4 % (0.0-2.0); EOS % 0.1 % (0.0-4.0); GRAN # 10.6 K/mm3 (1.4-6.5); GRAN % 89.4 % (42.2-75.2); HEMATOCRIT 34.5 % (37.0-47.0); HEMOGLOBIN 10.4 g/dl (12.5-16.0); LYMPH # 0.8 K/mm3 (1.2-3.4); LYMPH % 6.9 % (20.0-51.0); MEAN CELL VOLUME 74 fl (80.0-100.0); MEAN CORPUSCULAR HEMOGLOBIN 22 pg (27-31); MEAN CORPUSCULAR HGB CONC 30 g/dl (33.0-37.0); MEAN PLATELET VOLUME 9.4 fl (7.4-10.4); MONO # 0.3 K/mm3 (0.1-0.6); MONO % 2.5 % (1.7-9.3); PLATELET COUNT 455 K/mm3 (130-400); RED BLOOD COUNT 4.64 M/mm3 (4.10-5.30); REDCELL DISTRIBUTION WIDTH-CV 21.3 % (11.5-14.5)
[2021-07-23 09:09] LABS: CALCIUM 8.4 mg/dL (8.4-10.2); CREATININE, serum 1.04 mg/dL (0.57-1.11); POTASSIUM 3.6 mmol/L (3.5-4.5)
[2021-07-23 09:17] VITALS: BP 114/66; PULSE 91; TEMP 97.4
--- NOTE | 2021-07-23 11:38 | NUR ---
The patient's RN notified MELISSA that the patient's daughter, Kavita (ph#[phone]), has been in contact with her this morning. The patient and her now reside at [facility]. Her RN reports that Kavita is concerned about the patient returning back to [place], due to the patient's increased need in care. She is interested in the patient transitioning to long-term care. PT then notified MELISSA that she would recommend SNF or LTC for the patient. MELISSA contacted Elsa at [facility] and updated her on the above. Elsa reports that she will give this message to their RNs. She reports that she believes they can initiate the transfer to LTC. MELISSA faxed updates to [facility]. MELISSA also notified and faxed a referral to Clary at [facility] SNF/LTC. MELISSA then contacted the patient's daughter, Kavita, to review the above. Kavita confirmed her concerns of the patient needing more care. She is in agreement to the patient needing more care and transitioning to LTC. The patient's PCP is Dr. Charlee Lagos and her DPOA-HC is in EMR. The patient's DPOA-HC is her , Octavio. Octavio is in the Memory Care unit at [facility] as well. The patient's alternate DPOA-HC is her daughter, Kavita Cee. Kavita lives in [place]. Awaiting [facility]'s response for transfer to SNF/LTC. *Discharge plan: Tentatively [facility] SNF or LTC*
[2021-07-23 13:07] VITALS: BP 132/90; PULSE 125
--- NOTE | 2021-07-23 15:08 | NUR ---
PT QUAD RESULTS CAME BACK NEGATIVE WELL THE RVP. DISCONTINUED THE ISOLATION PRECAUTIONS AT THIS TIME.
--- NOTE | 2021-07-23 15:50 | NUR ---
Vancomycin Initial Dosing Pharmacy Note Ordering provider: Wilner Culver MD Indication/duration: Empiric, 5 days LABS: SCr 1.04, CrCl~48, GFR 51 Recommendation: Will start Vancomycin 1.5 gm IV q12h. Pharmacy will continue to closely monitor and check a Vancomycin trough on 07/25/21. Maintenance dose: 1.5 grams every 12 hours Trough goal: 15-20 ug/mL
[2021-07-23 16:00] VITALS: BP 115/95; PULSE 85; TEMP 98.1
--- NOTE | 2021-07-23 18:34 | NUR ---
THE PATIENT HAS BEEN TRANSITIONED TO COMFORT CARE. PATIENTS HAS CALLED 25 TIMES TODAY, AND HER CARE HAS BEEN DISCUSSED WITH HIM EACH TIME HE GETS THROUGH TO THE NURSE. THE RADIATION / CHEMISTRY TECHNICIAN OF THE HOSPITAL HAS ALSO NOTED THAT SHE HAS TALKED TO HIM AT LEAST 7 TIMES. THIS RN CONTACTED THE PATIENT'S DAUGHTER LARISA WHO WILL BE CALLING [facility] TO DISCUSS WRITING HIM A NOTE OR EVEN TAKING HIS PHONE. NO OTHER CONCERNS.
--- NOTE | 2021-07-23 19:38 | NUR ---
PT HAS TRANSITIONED TO COMFORT CARE, THE DAY HAS BEEN UNEVENTFUL. NO OTHER CONCERNS.
--- NOTE | 2021-07-24 05:54 | NUR ---
PT REMAINED INCOMPREHENSIBLE THROUGH OUT THE NIGHT, A/OX1, D5 INFUSING AT 60CC/HR TO IV. BS STABLE. ROBERTS C&D. ALL NEEDS MET THIS SHIFT. BED LOW. BED ALARM ON. PT VISIBLE TO NURSES STATION.
[2021-07-24] MEDS ORDERED: ROXANOL 20MG20 MG/ML SL (08:56)
[2021-07-24] MEDS ORDERED: SYSTANE 0.3-0.1 EACH OP (08:56)
[2021-07-24] MEDS ORDERED: TRANSDERM-0.5 MG/21 TD (08:57)
[2021-07-24] MEDS ORDERED: ATIVAN 1MG T1 MG/TAB PO (08:57)
--- NOTE | 2021-07-24 10:44 | NUR ---
A palliative care consult was ordered. The patient's daugher, Kavita, decided to pursue comfort care and would like the patient to return back to [facility] on hospice. MELISSA followed up with Clary at [facility]. [facility] she [facility] their [facility] care unit. MELISSA then contacted Cathy at [facility] to inquire if they can take the patient back on hospice. Catyh reports that she needs to do some checking and will then reach out to MELISSA. Kayden, at [facility], then contacted our palliative care RN, Goldie. Kayden informed Goldie that [facility] has been in contact with them and they are able to accept the patient and start her on hospice services. MELISSA contacted Cathy at [facility] and confirmed this. Cathy reports that they are good with taking the patient back today and are good with a 1300 pickle pumper time by EMS. MELISSA contacted and updated the patient's daughter, Kavita. Kavita in agreement to the plan and gave approval to sign her name on her behalf for the EMS consent form. The patient is to discharge today, 07/24, back to [facility] on hospice from [facility]. Transportation provided by [facility]. No additional needs at this time.
--- NOTE | 2021-07-24 10:54 | NUR ---
I spoke with Kayden from [facility] who reports that they will be providing her hospice services on the Memory Unit at [facility]. I did fax him her information and advised that she would need a close watch of bowel function in light of recent narcotics and history of impaction, and that she had a keating catheter. Plan for discharge this afternoon as coordinated by Annabelle with social media strategist.
--- NOTE | 2021-07-24 13:40 | NUR ---
PTS IV REMOVED. TIP INTACT. PRESSURE DRESSING APPLIED. ROBERTS EMPTIED. TELE REMOVED. PT AWAITING ABULANCE FOR TRANSFER.
== END 2021-07-24 14:24 | disposition hospice, inpatient (51) | DRG 872 ==
LOC: COL.ER 18:02 → MEDICAL 22:12
PROVIDERS: Emergency Medicine; Nurse Practitioner Family; ADMIT Internal Medicine
DX: A41.9 Sepsis, unspecified organism (principal); N17.9 Acute kidney failure, unspecified; E87.2 Acidosis; G93.40 Encephalopathy, unspecified; E87.0 Hyperosmolality and hypernatremia; F03.90 Unspecified dementia, unspecified severity, without behavioral disturbance, psychotic disturbance, mood disturbance, and anxiety; E78.5 Hyperlipidemia, unspecified; J44.9 Chronic obstructive pulmonary disease, unspecified; E03.9 Hypothyroidism, unspecified; D64.9 Anemia, unspecified; K21.9 Gastro-esophageal reflux disease without esophagitis; G89.29 Other chronic pain; M54.50 Low back pain, unspecified; R60.9 Edema, unspecified; R73.9 Hyperglycemia, unspecified; E87.6 Hypokalemia; D50.9 Iron deficiency anemia, unspecified; E86.0 Dehydration; D75.839 Thrombocytosis, unspecified; K59.00 Constipation, unspecified; Z20.822 Contact with and (suspected) exposure to COVID-19; Z96.653 Presence of artificial knee joint, bilateral; Z96.611 Presence of right artificial shoulder joint; Z51.5 Encounter for palliative care
CPT/HCPCS: 99223-AI; 99233-AI; 99239; J0696; J1720; J2060; J2543; J3370; J7030; J7050; J7070; Q9966